=== PATIENT | female | born 1990 | race Caucasian/White ===

== ENCOUNTER 2019-11-19 11:34 | Inpatient (IN) | payer BC, SELFPAY ==
[2019-11-19 11:35] VITALS: BP 90/60; PULSE 66; RESP 17; TEMP 36.7; O2SAT 99; BMI 20.7
--- NOTE | 2019-11-19 11:51 | ED.VIS.GEN ---
History of Present Illness Chief Complaint: Substance Abuse Informant: Patient Narrative: Patient presents requesting help with detox from fentanyl. She states she is been clean for 2 years. She recently started using weed followed by morphine and Percocet pills. This transitioned to fentanyl use approximately month ago. She states she will use multiple times a day and is recently started shooting it up. Last use was a few hours ago. - Past Medical History (1) Anxiety and depression Status: Chronic Past Medical History - Allergies and Home Meds Allergies/Adverse Reactions: Allergies No Known Allergies Allergy (Verified 11/19/19 11:35) Primary Care Physician: Care Physician,No Primary [Primary Care Provider] - Prior records reviewed: Yes Smoking Status: Current every day smoker Drugs: - - Fentanyl Review of Systems General: Denies: Chills, Fever Eyes: Denies: Visual changes - bilaterally ENT: Denies: Bilateral ear pain Cardiovascular: Denies: Chest pain Respiratory: Denies: Dyspnea, Cough Gastrointestinal: Denies: Abdominal pain, Nausea, Vomiting, Diarrhea Musculoskeletal: Denies: Extremity Pain Skin: Denies: Rash Neurological: Denies: Headache Hematologic: Denies: Easy bruising, Easy bleeding Allergy: Denies: Uticaria Physical Exam Vital Signs/Narrative: Vital Signs Temp Pulse Resp BP Pulse Ox 11/19/19 11:35 98.1 F 66 17 90/60 99 Inital Vital Signs reviewed: Yes General: Well nourished, Well developed Head: Normocephalic ENT: Moist mucous membranes Neck: Supple Cardiovascular: Regular rate, Regular rhythm Respiratory: No distress, CTA bilaterally Abdomen: Soft, Nontender Extremities: Nontender Skin: Normal color Neurological: Alert, Oriented x3, Normal Strength, Normal Sensation Diagnostic/Tx/Re-eval Laboratory Results 11/19/19 11/19/19 11/19/19 10:25 10:25 10:25 WBC 7.5 RBC 3.64 L Hgb 11.1 L Hct 34.6 L MCV 95.1 MCH 30.5 MCHC 32.1 RDW Std Deviation 41.7 RDW Coeff of Chris 12.0 Plt Count 231 MPV 10.2 Immature Gran % (Auto) 0.100 Neut % (Auto) 64.5 Lymph % (Auto) 24.2 [place] % (Auto) 8.3 Eos % (Auto) 2.4 Baso % (Auto) 0.5 Absolute Neuts (auto) 4.8 Absolute Lymphs (auto) 1.81 Nucleated RBC % 0 Sodium 138 Potassium 3.5 Chloride 103 Carbon Dioxide 30.0 Anion Gap 5 BUN 7 Creatinine 0.82 Estim Creat Clear Calc 76.39 Est GFR (MDRD) Af Amer 106 Est GFR (MDRD) Non-Af 88 BUN/Creatinine Ratio 8.5 L Glucose 114 H Calcium 8.6 Total Bilirubin 0.20 AST 17 ALT 16 Alkaline Phosphatase 73 Total Protein 7.4 Albumin 3.2 Globulin 4.2 Albumin/Globulin Ratio 0.8 L Serum , Qual NEGATIVE Urine Opiates Screen Urine Methadone Screen Ur Barbiturates Screen Ur Phencyclidine Scrn Ur Amphetamines Screen U Methamphetamin-MDMA U Benzodiazepines Scrn Urine Cocaine Screen U Cannabinoids Screen Ur Drug Screen Comment 11/19/19 12:10 WBC RBC Hgb Hct MCV MCH MCHC RDW Std Deviation RDW Coeff of Chris Plt Count MPV Immature Gran % (Auto) Neut % (Auto) Lymph % (Auto) [place] % (Auto) Eos % (Auto) Baso % (Auto) Absolute Neuts (auto) Absolute Lymphs (auto) Nucleated RBC % Sodium Potassium Chloride Carbon Dioxide Anion Gap BUN Creatinine Estim Creat Clear Calc Est GFR (MDRD) Af Amer Est GFR (MDRD) Non-Af BUN/Creatinine Ratio Glucose Calcium Total Bilirubin AST ALT Alkaline Phosphatase Total Protein Albumin Globulin Albumin/Globulin Ratio Serum , Qual Urine Opiates Screen POSITIVE H Urine Methadone Screen NEGATIVE Ur Barbiturates Screen NEGATIVE Ur Phencyclidine Scrn NEGATIVE Ur Amphetamines Screen NEGATIVE U Methamphetamin-MDMA POSITIVE H U Benzodiazepines Scrn NEGATIVE Urine Cocaine Screen NEGATIVE U Cannabinoids Screen NEGATIVE Ur Drug Screen Comment - Medical Decision Making Laboratory for detox admission was obtained. Patient discussed with hospitalist. Patient be admitted to the floor for detox program. ED Disposition - Plan for ED Patient: Disposition: Acute Care Hospital [facility] Diagnosis: Desire for detoxification Referrals: Care Physician,No Primary [Primary Care Provider] -
[2019-11-19 12:20] LABS: Absolute Lymphocyte Count 1.81 X10^3/uL (0.83-4.51); Absolute Neutrophil Count 4.8 X10^3/uL (2.0-7.7); Basophil# 0.04 X10^3/uL; Basophil% 0.5 % (0-1); Eosinophil# 0.18 X10^3/uL; Eosinophils% 2.4 % (0-5); Hematocrit 34.6 % (37-47); Hemoglobin 11.1 g/dL (12.0-15.0); Lymphocyte # 1.81 X10^3/ul (4.0); Lymphocyte % 24.2 % (19-41); Mean Corp Hgb Conc 32.1 g/dL (32-36); Mean Corpuscular Hgb 30.5 pg (27.0-32.0); Mean Corpuscular Volume 95.1 fL (81-99); Mean Platelet Vol. 10.2 fl (6.2-12.0); Monocyte# 0.62 X10^3/uL; Monocyte% 8.3 % (0-10); NRBC Flagged by Analyzer 0 % (0-5); Neutrophil # 4.81 X10^3/uL (2.7-7.7); Neutrophil % 64.5 % (47-70); Platelet Count 231 K/mm3 (150-450); RBC Distribution Width SD 41.7 fl (35.1-43.9); Red Blood Count 3.64 M/mm3 (4.2-5.4); White Blood Count 7.5 K/mm3 (4.4-11.0)
[2019-11-19 12:27] LABS: Internal QC Validated? YES +Cl - CLEAR BKGD; Pregnancy, Serum, hCG Quali. NEGATIVE Negative
[2019-11-19 12:35] LABS: ALB/GLOB Ratio 0.8 RATIO (0.9-2.4); AST(SGOT) 17 U/L (15-37); Alanine Aminotransfer ALT/SGPT 16 U/L (13-56); Albumin, Serum 3.2 g/dL (3.2-5.0); Alkaline Phosphatase 73 U/L (45-117); Anion Gap 5 (5-15); BUN 7 mg/dL (7-18); BUN/Creat Ratio 8.5 RATIO (10-20); Calcium,Total 8.6 mg/dL (8.5-10.1); Chloride 103 mmol/L (98-107); Creatinine, Serum 0.82 mg/dL (0.55-1.02); EST Glomerular Filtration Rate 88 mL/min (>60); Est Glom Filt Rate - Afr Amer 106 mL/min (>60); Estimated Creatinine Clearance 76.39 ml/min; Globulin 4.2 g/dL (2.2-4.2); Glucose 114 mg/dL (74-106); Potassium 3.5 mmol/L (3.5-5.1); Protein, Total 7.4 g/dL (6.4-8.2); Sodium Level 138 mmol/L (136-145)
[2019-11-19 12:50] LABS: Amphetamine Urine VISTA NEGATIVE (<1000 ng/mL); Barbiturate Urine VISTA NEGATIVE (< 200 ng/mL); Benzodiazepine Urine VISTA NEGATIVE (< 200 ng/mL); Cocaine Urine VISTA NEGATIVE (< 300 ng/mL); Ecstacy Urine VISTA POSITIVE (< 500 ng/mL); Methadone Urine VISTA NEGATIVE (< 300 ng/mL); PCP Urine VISTA NEGATIVE (< 25 ng/mL); THC Urine VISTA NEGATIVE (< 50 ng/mL); Vista UDS pH Range 6
[2019-11-19 12:58] LABS: Alcohol, Blood (Medical)-Serum < 3.0 mg/dL
--- NOTE | 2019-11-19 13:00 | PCM.HP.STD ---
Problem List (1) Polysubstance (including opioids) dependence, daily use Status: Chronic (2) Acute opioid withdrawal Status: Acute (3) Nicotine dependence Status: Acute (4) Anxiety and depression Status: Chronic History of Present Illness Date of Admission: 11/19/19 Chief Complaint: Came to ER for opioid detoxification and opioid withdrawal symptoms The patient is a 29 year old F with history of opioid use and dependence and relapse came to ER for detoxification. Patient last dose was IV fentanyl in the morning today. In ED, she started feeling anxiety, nervous and restless and felt her withdrawal symptoms are coming. She was clean for about 2 years and then relapsed with weed, then it progressed to morphine and Percocet inhalation and then IV fentanyl about a month ago. She spent about $40-$50 every day and uses IV fentanyl multiple times a day. She also smokes 1 pack cigarette in 3 days along with smoking weeds. Denies other substance use including benzodiazepine, methamphetamine, minocycline and crack cocaine but U tox is positive for opioids and methamphetamine. Vitals on baseline in ER. test negative. Past Medical History Past Medical History (Chronic Problems): Chronic Problems Anxiety and depression (Chronic) Polysubstance (including opioids) dependence, daily use (Chronic) Allergies No Known Allergies Allergy (Verified 11/19/19 11:35) Home Medications: Ambulatory Orders Medication Instructions Recorded Citalopram [Celexa] 20 mg PO DAILY 11/19/19 Smoking Status: Current every day smoker Drugs: - - Fentanyl - *Family History Paternal History Items: - - Father had chronic alcohol use and dependence disorder. Review of Systems Constitutional: Reports: Malaise, Weakness. Denies: Chills, Fever, Weight Change HEENT: Denies: Head Aches, Sinus Congestion, Sinus Drainage Cardiovascular: Denies: Chest Pain, Palpitations Respiratory: Denies: Cough, Shortness of breath at rest, Sputum production Gastrointestinal: Denies: Abdominal Pain, Nausea, Vomiting Genitourinary: Denies: Dysuria, Frequency, Incontinence, Retention, Urgency Musculoskeletal: Reports: Leg Pain. Denies: Joint Pain, Joint Tenderness Skin: Denies: Rash, Wounds Neurological: Denies: Numbness, Tingling, Focal weakness Psychiatric: Reports: Anxiety. Denies: Depression, Homicidal Ideations, Suicidal Ideations Hematologic/ Lymphatic: Denies: Easy Bruising, Easy Bleeding VTE Information - Inpt Only VTE Present on Admission: No VTE Mechan Device Prophylaxis: None VTE Pharm Prophylaxis ordered?: No Reason prophylaxis not ordered:: Procedure Not Indicated Patient Problems: Active and Suspected Problems Acute opioid withdrawal (Acute) Nicotine dependence (Acute) - Physical Exam Vitals/I&O's: Vital Signs Temp Pulse Resp BP Pulse Ox 98.1 F 66 17 90/60 99 11/19/19 11:35 11/19/19 11:35 11/19/19 11:35 11/19/19 11:35 11/19/19 11:35 Oxygen Delivery Method Room Air Weight: 110 lb Body Mass Index (BMI) 20.7 General: Alert, Oriented x3, Cooperative HEENT: Atraumatic, PERRLA, EOMI, Normocephalic Oral: No Gingival or Mucosal Lesions/ Ulcerations, Dry Mucosa Neck: Supple, No JVD, Negative Carotid Bruits Lungs: Clear to auscultation, Normal air movement, No rhonchi, No wheeze, No rales Cardiovascular: Regular rate, Regular Rhythm, Normal S1, Normal S2, No murmurs Abdomen: Bowel Sounds Present, Soft, Non Tender, Non-Distended Extremities: No edema, Capillary Refill Less than 3 Seconds Skin: No rashes, No breakdown, - - Needle barksdale over antecubital region. Musculoskeletal: No Tenderness to Palpation of Joints or Extremities, Tenderness - Mild tenderness over right lower leg. Squeezing test of right ankle, foot and lower leg are negative. Says muscle tenderness. Does not remember exactly what she might have bumped her leg few days ago. Neurological: Cranial nerves II-XII grossly intact, Deep Tendon Reflexes 2+/4 and Symmetrical, Neuro grossly intact, Motor Exam 5/5 strength throughout Psych/Mental Status: Anxious, Restless Laboratory Results 11/19/19 10:25: WBC 7.5, RBC 3.64 L, Hgb 11.1 L, Hct 34.6 L, MCV 95.1, MCH 30.5, MCHC 32.1, RDW Std Deviation 41.7, RDW Coeff of Chris 12.0, Plt Count 231, MPV 10.2, Immature Gran % (Auto) 0.100, Neut % (Auto) 64.5, Lymph % (Auto) 24.2, [place] % (Auto) 8.3, Eos % (Auto) 2.4, Baso % (Auto) 0.5, Absolute Neuts (auto) 4.8, Absolute Lymphs (auto) 1.81, Nucleated RBC % 0 11/19/19 10:25: Sodium 138, Potassium 3.5, Chloride 103, Carbon Dioxide 30.0, Anion Gap 5, BUN 7, Creatinine 0.82, Estim Creat Clear Calc 76.39, Est GFR (MDRD) Af Amer 106, Est GFR (MDRD) Non-Af 88, BUN/Creatinine Ratio 8.5 L, Glucose 114 H, Calcium 8.6, Total Bilirubin 0.20, AST 17, ALT 16, Alkaline Phosphatase 73, Total Protein 7.4, Albumin 3.2, Globulin 4.2, Albumin/Globulin Ratio 0.8 L 11/19/19 10:25: Ethyl Alcohol < 3.0 11/19/19 10:25: Serum , Qual NEGATIVE 11/19/19 12:10: Urine Opiates Screen POSITIVE H, Urine Methadone Screen NEGATIVE, Ur Barbiturates Screen NEGATIVE, Ur Phencyclidine Scrn NEGATIVE, Ur Amphetamines Screen NEGATIVE, U Methamphetamin-MDMA POSITIVE H, U Benzodiazepines Scrn NEGATIVE, Urine Cocaine Screen NEGATIVE, U Cannabinoids Screen NEGATIVE, Ur Drug Screen Comment Assessment/Plan All Active Problems Acute opioid withdrawal (Acute) Nicotine dependence (Acute) There is a 29-year-old female with history of polysubstance use and dependence came to ED for detoxification for opioids. She uses IV fentanyl multiple times a day. 1. Acute opioid withdrawal: Patient is being admitted on [facility] floor. IV fluid Ringer lactate and buprenorphine sublingual schedule and taper. Other supportive medications clonidine, dicyclomine, gabapentin, hydroxyzine, ibuprofen, methocarbamol and loperamide. manager programming consult for 180 and evaluation. U tox is positive of opioids and methamphetamine. Serum test negative. 2. Polysubstance use including opioids: Although patient states she only uses opioids/fentanyl but urine tox positive of methamphetamine too. Substance quit counseling was done. 3. Cigarette smoking/nicotine dependence: Nicotine patch daily. 4. DVT prophylaxis: Low risk early ambulation encouraged. Inpatient E&M: [id number] Init Hosp L3
[2019-11-19] MEDS: LORazepam 1 MG Tablet PO (13:02)
[2019-11-19 13:03] VITALS: BP 120/78; PULSE 79; RESP 16; TEMP 36.8; O2SAT 98
--- NOTE | 2019-11-19 13:30 | CM.ED ---
SOCIAL WORK PATIENT ADMITTED TO THE RAMP PROGRAM FOR MEDICAL WITHDRAW MANAGEMENT FROM [facility]. CALL TO [employer] TREATMENT NAVIGATOR, SHIMA AND UPDATED ON ADMISSION THIS DAY. SHIMA REPORTS SOMEONE WILL BE IN TO ASSESS PATIENT TOMORROW. Emmanuelle GAGE MSW, AWNINGS MECHANIC.
[2019-11-19 13:41] VITALS: BMI 21.3
[2019-11-19 13:52] VITALS: BMI 21.4
[2019-11-19 14:00] VITALS: BP 105/60; PULSE 80; RESP 18; TEMP 36.8; O2SAT 100
[2019-11-19 14:11] LABS: Prothrombin Time (Protime)PT. 12.7 SECONDS (11.7-14.9)
[2019-11-19 14:20] LABS: Bacteria 0 SEEN /hpf (None Seen); Mucous, Urine 0 SEEN /hpf (<or=2+)
[2019-11-19 14:39] LABS: Color, Urine Yellow (Yellow); Glucose, Dipstick Normal (Normal); Ketone-Dipstick 5 mg/dl (Negative); Leukocyte Esterase-Dipstick 25 /ul (Negative); Nitrite-Dipstick Negative (Negative); Occult Blood-Urine 250 /ul (Negative); Protein-Dipstick 15 mg/dl (Negative); Specific Gravity, Urine 1.025 (1.002-1.030); Urine Bilirubin Dipstick Negative (Negative); Urine Clarity Clear (Clear); Urine Urobilinogen 1 mg/dl (Normal)
--- NOTE | 2019-11-19 14:39 | CASEMGMT ---
Social Work Note Tom from [facility] updated this worker that she attempted to see pt today but pt not able to participate in assessment at this time. Tom states she will be back in tomorrow to speak to pt. Loretta Jaramillo SUBSTATION SUPERVISOR, MEDICAL ASSISTING PROGRAM DIRECTOR
[2019-11-19 14:44] LABS: Squamous Epithelial Cells - UA 0-5 SEEN /hpf (5-10); White Blood Cells 0-5 SEEN /hpf (0-5)
[2019-11-19 14:45] LABS: Red Blood Cells-Urine 0-5 SEEN /hpf (0-5)
[2019-11-19] MEDS: Lactated Ringers 1,000 ML 125 ML IV (14:59)
[2019-11-19] MEDS: Methocarbamol 750 MG Tablet 1500 MG PO ×2 (17:07→23:02)
[2019-11-19] MEDS: Buprenorphine HCl 2 MG TAB.SUBL SL (17:07)
[2019-11-19 20:29] VITALS: BP 111/69; PULSE 73; RESP 16; TEMP 36.6; O2SAT 98
[2019-11-20 00:33] VITALS: BP 123/77; PULSE 89; RESP 16; TEMP 36.6; O2SAT 99
[2019-11-20] MEDS: Buprenorphine HCl 2 MG TAB.SUBL SL ×4 (00:39→22:17)
[2019-11-20] MEDS: cloNIDine HCl 0.1 MG Tablet PO (00:39)
[2019-11-20 04:00] VITALS: BP 102/64; PULSE 70; RESP 16; TEMP 36.5; O2SAT 96
[2019-11-20 06:45] VITALS: BP 93/56; PULSE 73; RESP 16; TEMP 36.6; O2SAT 100
--- NOTE | 2019-11-20 08:29 | CASEMGMT ---
Social Work Note Pt is RAMP pt. SW placed a call to Tom at [facility] and left message that pt will need to be seen. Loretta Jaramillo DATA CONVERSION ANALYST, MANAGER CIVIL
[2019-11-20 10:45] VITALS: BP 94/64; PULSE 69; RESP 16; RESP 18; TEMP 36.7; O2SAT 100
--- NOTE | 2019-11-20 12:43 | PCM.PN.HOSP ---
Patient Problems: Active and Suspected Problems Acute opioid withdrawal (Acute) Nicotine dependence (Acute) Desire for detoxification (Acute) Reason for Visit: Acute opioid withdrawal Objective: Patient is lethargic, sleepy. Has poor appetite. Still sometimes restlessness, anxiety attacks and aches and pains. No diarrhea. Vitals/I&O's: Vital Signs Temp Pulse Resp BP Pulse Ox 98.1 F 69 18 94/64 100 11/20/19 10:45 11/20/19 10:45 11/20/19 10:45 11/20/19 10:45 11/20/19 10:45 Oxygen Delivery Method Room Air Weight: 113 lb Body Mass Index (BMI) 21.3 Intake and Output for Last 24 Hours 11/18/19 11/19/19 11/20/19 23:59 23:59 23:59 Intake Total 1327.08 / 1327.08 1622 / 1622 Balance 1327.08 / 1327.08 1622 / 1622 General: Alert, Oriented x3, Cooperative HEENT: Atraumatic, PERRLA, EOMI, Normocephalic Neck: Supple, No JVD, Negative Carotid Bruits Lungs: Clear to auscultation, Normal air movement, No rhonchi, No wheeze, No rales Cardiovascular: Regular rate, No murmurs Abdomen: Bowel Sounds Present, Soft, Non Tender, Non-Distended Extremities: No edema, Capillary Refill Less than 3 Seconds Skin: No rashes, No breakdown, - - needle barksdale over antecubital region. Musculoskeletal: No Tenderness to Palpation of Joints or Extremities Neurological: Cranial nerves II-XII grossly intact, Deep Tendon Reflexes 2+/4 and Symmetrical, Neuro grossly intact, Motor Exam 5/5 strength throughout Psych/Mental Status: Normal Affect, Appropriate Laboratory Results 11/19/19 10:25: Ethyl Alcohol < 3.0 11/19/19 12:05: PT 12.7, INR 1.0 11/19/19 12:10: Urine Opiates Screen POSITIVE H, Urine Methadone Screen NEGATIVE, Ur Barbiturates Screen NEGATIVE, Ur Phencyclidine Scrn NEGATIVE, Ur Amphetamines Screen NEGATIVE, U Methamphetamin-MDMA POSITIVE H, U Benzodiazepines Scrn NEGATIVE, Urine Cocaine Screen NEGATIVE, U Cannabinoids Screen NEGATIVE 11/19/19 12:10: Urine Color Yellow, Urine Clarity Clear, Urine pH 5.0, Ur Specific [place] 1.025, Urine Protein 15 H, Urine Glucose (UA) Normal, Urine Ketones 5 H, Urine Occult Blood 250 H, Urine Nitrite Negative, Urine Bilirubin Negative, Urine Urobilinogen 1 H, Ur Leukocyte Esterase 25 H, Urine RBC 0-5 SEEN, Urine WBC 0-5 SEEN, Ur Squamous Epith Cells 0-5 SEEN, Urine Bacteria 0 SEEN, Urine Mucus 0 SEEN Current Medications Acetaminophen (Tylenol) 500 mg PO Q4H PRN PRN PRN Reason: Temp > 100.4 F Al Hydroxide/Mg Hydroxide (Mylanta Ii) 30 ml PO Q6H PRN PRN PRN Reason: dyspesia Bisacodyl (Dulcolax) 10 mg RECTAL DAILY PRN PRN Reason: Constipation Buprenorphine HCl (Buprenorphine Hcl) 4 mg SL Q8H JUSTIN; Taper Stop: 11/22/19 15:14 Last Admin: 11/20/19 06:49 Dose: 4 mg Documented by: Clonidine (Catapres) 0.1 mg PO Q8H PRN PRN PRN Reason: RESTLESSNESS Last Admin: 11/20/19 00:39 Dose: 0.1 mg Documented by: Dicyclomine HCl (Bentyl) 20 mg PO Q6H PRN PRN PRN Reason: Abdominal Discomfort Gabapentin (Neurontin) 300 mg PO Q8H PRN PRN PRN Reason: moderate to severe anxiety Hydroxyzine Pamoate (Vistaril Pamoate Capsule) 50 mg PO Q6H PRN PRN PRN Reason: mild anxiety Ibuprofen (Motrin) 600 mg PO Q8H PRN PRN PRN Reason: Pain Score 1-10/10 Loperamide HCl (Imodium) 2 mg PO Q4H PRN PRN PRN Reason: LOOSE STOOLS Methocarbamol (Methocarbamol) 1,500 mg PO Q6H PRN PRN PRN Reason: MUSCLE SPASM Last Admin: 11/19/19 23:02 Dose: 1,500 mg Documented by: Nicotine (Nicoderm Cq (Pbkc)) 21 mg TRANSDERM. DAILY JUSTIN Last Admin: 11/20/19 10:55 Dose: 21 mg Documented by: Ondansetron HCl (Zofran) 8 mg PO Q8H PRN PRN PRN Reason: NAUSEA Senna (Senokot) 2 tablet PO QHS PRN PRN Reason: Constipation Sodium Chloride () 10 - 40 ml IV UD PRN PRN Reason: SALINE FLUSH Trazodone HCl (Desyrel) 100 mg PO QHS PRN PRN PRN Reason: INSOMNIA STROKE Vital Signs/Narrative: Vital Signs Temp Pulse Resp BP Pulse Ox 11/20/19 10:45 98.1 F 69 16 94/64 100 Medical Necessity - Tobacco Use Smoking Status: Current every day smoker Tobacco Use: Cigarettes, Vapor Assessment/Plan All Active Problems Acute opioid withdrawal (Acute) Nicotine dependence (Acute) Desire for detoxification (Acute) There is a 29-year-old female with history of polysubstance use and dependence came to ED for detoxification for opioids. She uses IV fentanyl multiple times a day. 1. Acute opioid withdrawal: Patient is being admitted on MedSur floor. IV fluid Ringer lactate and buprenorphine sublingual schedule and taper. Other supportive medications clonidine, dicyclomine, gabapentin, hydroxyzine, ibuprofen, methocarbamol and loperamide. manager development consult for 180 and evaluation. U tox is positive of opioids and methamphetamine. Serum test negative. 11/19: Mild withdrawal symptoms otherwise doing good. Patient is sleepy. Monitor CINA score. Heart rate and blood pressure is stable. INR 1.0. 2. Polysubstance use including opioids: Although patient states she only uses opioids/fentanyl but urine tox positive of methamphetamine too. Substance quit counseling was done. 3. Cigarette smoking/nicotine dependence: Nicotine patch daily. 4. DVT prophylaxis: Low risk early ambulation encouraged. Inpatient E&M: [id number] [facility] Hosp L2
[2019-11-20] MEDS: Methocarbamol 750 MG Tablet 1500 MG PO ×2 (13:24→22:17)
--- NOTE | 2019-11-20 15:06 | CHAPLAIN ---
Type of Pastoral Visit _x__ Initial Visit ___ Follow-up Visit ___ On-call Visit ___ General Patient Visit ___ Spiritual Assessment ___ Family Conference ___ Bereavement ___ Rapid Response ___ Code Blue ___ Other (describe below) Pastoral Care Referral From _x__ Patient ___ Family ___ Nurse ___ Physician ___ Engine Setter ___ Cad Draftsman ___ Other (describe below) Sacrament/Intervention _x__ Active listening ___ Anointing ___ Orthodox ___ Bereavement ___ Communion ___ Kristie exploration ___ ___ Life review ___ Prayer ___ Reconciliation ___ Sacrament of Sick _x__ Supportive presence ___ Wedding ___ Other (describe below) Pastoral Comments patient is awake and sitting up in bed; pt has lunch tray and states I didn't even know I had this so I am going to try and eat; pt is pleasant in manner; offer of support given; pt would welcome a future visit
[2019-11-20] MEDS: hydrOXYzine PAM 25 MG Capsule 50 MG PO ×2 (15:25→22:16)
[2019-11-20 15:59] VITALS: BP 104/64; PULSE 82; RESP 18; TEMP 36.8; O2SAT 100
[2019-11-20] MEDS: Dicyclomine 10 MG Capsule 20 MG PO (22:16)
[2019-11-20] MEDS: traZODone 100 MG Tablet PO (22:17)
[2019-11-20 22:26] VITALS: BP 102/55; PULSE 77; RESP 16; TEMP 37.2; O2SAT 99
[2019-11-21 02:41] VITALS: BP 101/65; PULSE 80; RESP 16; TEMP 36.7; O2SAT 99
[2019-11-21] MEDS: Buprenorphine HCl 2 MG TAB.SUBL SL ×2 (06:48→15:50)
[2019-11-21] MEDS: Dicyclomine 10 MG Capsule 20 MG PO ×2 (06:48→17:35)
[2019-11-21] MEDS: hydrOXYzine PAM 25 MG Capsule 50 MG PO (06:48)
[2019-11-21 08:41] VITALS: BP 90/52; PULSE 60; RESP 15; TEMP 36.6; O2SAT 99
[2019-11-21 10:45] VITALS: BP 100/51; PULSE 75; RESP 15; TEMP 36.6; O2SAT 99
--- NOTE | 2019-11-21 12:29 | PCM.PN.HOSP ---
Patient Problems: Active and Suspected Problems Acute opioid withdrawal (Acute) Nicotine dependence (Acute) Desire for detoxification (Acute) Reason for Visit: Patient symptoms are controlled but she still sleepy, lethargic. She answers questions appropriately. Vitals/I&O's: Vital Signs Temp Pulse Resp BP Pulse Ox 97.9 F 75 15 100/51 L 99 11/21/19 10:45 11/21/19 10:45 11/21/19 10:45 11/21/19 10:45 11/21/19 10:45 Oxygen Delivery Method Room Air Weight: 113 lb Body Mass Index (BMI) 21.3 Intake and Output for Last 24 Hours 11/19/19 11/20/19 11/21/19 23:59 23:59 23:59 Intake Total 1327.08 / 1327.08 2422 / 2422 550 / 550 Balance 1327.08 / 1327.08 2422 / 2422 550 / 550 General: Alert, Oriented x3, Cooperative HEENT: Atraumatic, PERRLA, EOMI, Normocephalic Neck: Supple, No JVD, Negative Carotid Bruits Lungs: Clear to auscultation, Normal air movement Cardiovascular: Regular rate, Regular Rhythm, Normal S1, Normal S2, No murmurs Abdomen: Bowel Sounds Present, Soft, Non Tender, Non-Distended Extremities: No edema, Capillary Refill Less than 3 Seconds Skin: No rashes, No breakdown, - - Needle track barksdale over antecubital region. Musculoskeletal: No Tenderness to Palpation of Joints or Extremities Neurological: Cranial nerves II-XII grossly intact, Deep Tendon Reflexes 2+/4 and Symmetrical, Neuro grossly intact Psych/Mental Status: Normal Affect, Appropriate Current Medications Acetaminophen (Tylenol) 500 mg PO Q4H PRN PRN PRN Reason: Temp > 100.4 F Al Hydroxide/Mg Hydroxide (Mylanta Ii) 30 ml PO Q6H PRN PRN PRN Reason: dyspesia Bisacodyl (Dulcolax) 10 mg RECTAL DAILY PRN PRN Reason: Constipation Buprenorphine HCl (Buprenorphine Hcl) 2 mg SL Q8H [facility]; Taper Stop: 11/22/19 15:14 Last Admin: 11/21/19 06:48 Dose: 2 mg Documented by: Clonidine (Catapres) 0.1 mg PO Q8H PRN PRN PRN Reason: RESTLESSNESS Last Admin: 11/20/19 00:39 Dose: 0.1 mg Documented by: Dicyclomine HCl (Bentyl) 20 mg PO Q6H PRN PRN PRN Reason: Abdominal Discomfort Last Admin: 11/21/19 06:48 Dose: 20 mg Documented by: Gabapentin (Neurontin) 300 mg PO Q8H PRN PRN PRN Reason: moderate to severe anxiety Hydroxyzine Pamoate (Vistaril Pamoate Capsule) 50 mg PO Q6H PRN PRN PRN Reason: mild anxiety Last Admin: 11/21/19 06:48 Dose: 50 mg Documented by: Ibuprofen (Motrin) 600 mg PO Q8H PRN PRN PRN Reason: Pain Score 1-10/10 Loperamide HCl (Imodium) 2 mg PO Q4H PRN PRN PRN Reason: LOOSE STOOLS Methocarbamol (Methocarbamol) 1,500 mg PO Q6H PRN PRN PRN Reason: MUSCLE SPASM Last Admin: 11/20/19 22:17 Dose: 1,500 mg Documented by: Nicotine (Nicoderm Cq (Pbkc)) 21 mg TRANSDERM. DAILY JUSTIN Last Admin: 11/21/19 09:13 Dose: 21 mg Documented by: Ondansetron HCl (Zofran) 8 mg PO Q8H PRN PRN PRN Reason: NAUSEA Senna (Senokot) 2 tablet PO QHS PRN PRN Reason: Constipation Sodium Chloride () 10 - 40 ml IV UD PRN PRN Reason: SALINE FLUSH Trazodone HCl (Desyrel) 100 mg PO QHS PRN PRN PRN Reason: INSOMNIA Last Admin: 11/20/19 22:17 Dose: 100 mg Documented by: STROKE Vital Signs/Narrative: Vital Signs Temp Pulse Resp BP Pulse Ox 11/21/19 10:45 97.9 F 75 15 100/51 L 99 11/21/19 08:41 97.9 F 60 15 90/52 L 99 Medical Necessity - Tobacco Use Smoking Status: Current every day smoker Tobacco Use: Cigarettes, Vapor Assessment/Plan All Active Problems Acute opioid withdrawal (Acute) Nicotine dependence (Acute) Desire for detoxification (Acute) There is a 29-year-old female with history of polysubstance use and dependence came to ED for detoxification for opioids. She uses IV fentanyl multiple times a day. 1. Acute opioid withdrawal: [facility] IV fluid Ringer lactate and buprenorphine sublingual schedule and taper. Other supportive medications clonidine, dicyclomine, gabapentin, hydroxyzine, ibuprofen, methocarbamol and loperamide. welfare project manager consult for 180 and evaluation. U tox is positive of opioids and methamphetamine. Serum test negative. 11/19: Mild withdrawal symptoms otherwise doing good. Patient is sleepy. Monitor CINA score. Heart rate and blood pressure is stable. INR 1.0. 11/20: Mild withdrawal symptoms. Discharge tomorrow. 2. Polysubstance use including opioids: Although patient states she only uses opioids/fentanyl but urine tox positive of methamphetamine too. Substance quit counseling was done. 3. Cigarette smoking/nicotine dependence: Nicotine patch daily. 4. DVT prophylaxis: Low risk early ambulation encouraged. Inpatient E&M: [id number] [facility] Hosp L2
--- NOTE | 2019-11-21 13:01 | CHAPLAIN ---
Type of Pastoral Visit ___ Initial Visit _x__ Follow-up Visit ___ On-call Visit ___ General Patient Visit ___ Spiritual Assessment ___ Family Conference ___ Bereavement ___ Rapid Response ___ Code Blue ___ Other (describe below) Pastoral Care Referral From _x__ Patient ___ Family ___ Nurse ___ Physician ___ Installer Molding And Trim ___ Chef Passenger Vessel ___ Other (describe below) Sacrament/Intervention ___ Active listening ___ Anointing ___ Congregation ___ Bereavement ___ Communion ___ Kristie exploration ___ ___ Life review ___ Prayer ___ Reconciliation ___ Sacrament of Sick _x__ Supportive presence ___ Wedding ___ Other (describe below) Pastoral Comments patient was napping but opens eyes when this yarn salvager enters room; offer of support given; pt states she is just trying to sleep the time away and I'm doing ok; no other concerns at this time
[2019-11-21 15:52] VITALS: BP 106/61; PULSE 74; RESP 16; TEMP 37; O2SAT 100
--- NOTE | 2019-11-21 16:00 | NURSING ---
pt wanting to leave and her girlfriend call the front window cashier and wanted an update - told pt and gave encouragement verbally from girlfriend after this rn talked with girlfriend on the phone
[2019-11-21] MEDS: Methocarbamol 750 MG Tablet 1500 MG PO (17:35)
[2019-11-21 17:43] VITALS: BP 106/62; PULSE 75; RESP 16; TEMP 37.1; O2SAT 99
[2019-11-21] MEDS: Ibuprofen 600 MG Tablet PO (19:50)
[2019-11-21 19:55] VITALS: BP 104/68; PULSE 65; RESP 18; TEMP 37.2; O2SAT 98
[2019-11-22] MEDS: Buprenorphine HCl 2 MG TAB.SUBL SL (03:24)
[2019-11-22 03:30] VITALS: BP 94/43; PULSE 66; RESP 18; TEMP 36.4; O2SAT 99
[2019-11-22 08:02] VITALS: BP 107/58; PULSE 72; RESP 16; TEMP 36.4; O2SAT 100
--- NOTE | 2019-11-22 10:03 | PCM.DC.SUM ---
Discharge Date and Diagnosis Date of Admission: 11/19/19 Date of Discharge: 11/22/19 - Secondary Discharge Diagnosis Chronic Problems: Chronic Problems Anxiety and depression (Chronic) Polysubstance (including opioids) dependence, daily use (Chronic) Hospital Course and Treatment Imaging Results: None Operations: None Procedures: None Summary of Care Provided: Per HPI: The patient is a 29 year old F with history of opioid use and dependence and relapse came to ER for detoxification. Patient last dose was IV fentanyl in the morning today. In ED, she started feeling anxiety, nervous and restless and felt her withdrawal symptoms are coming. She was clean for about 2 years and then relapsed with weed, then it progressed to morphine and Percocet inhalation and then IV fentanyl about a month ago. She spent about $40-$50 every day and uses IV fentanyl multiple times a day. She also smokes 1 pack cigarette in 3 days along with smoking weeds. Denies other substance use including benzodiazepine, methamphetamine, minocycline and crack cocaine but U tox is positive for opioids and methamphetamine. Vitals on baseline in ER. test negative. Hospital Course: 1. Acute opiate [id number]-old female who uses IV fentanyl, and she used on the morning of admission. She is gone through rehab and relapsed several times. She was clean for about 2 years in the past. She had wanted to leave yesterday, however was convinced to stay. I discussed with her the plan for possible discharge today versus staying until the which is when she has her appointment for 180. She did complete the opioid withdrawal protocol, however her symptoms were severe enough to necessitate medications. She felt that she would do fine on her own since she was going to be doing an outpatient rehab stay. I discussed with her the approach to both behavioral and mental health and recovery from addiction. She did express understanding of the risks and benefits of discharging today versus on the day of transfer to 180. 2. She was started on nicotine patch for her nicotine dependence secondary to cigarettes. Discussed cessation. - Physical Exam Vitals/I&O's: Vital Signs Temp Pulse Resp BP Pulse Ox 97.6 F L 72 16 107/58 L 100 11/22/19 08:02 11/22/19 08:02 11/22/19 08:02 11/22/19 08:02 11/22/19 08:02 Oxygen Delivery Method Room Air Weight: 113 lb Body Mass Index (BMI) 21.3 Intake and Output for Last 24 Hours 11/20/19 11/21/19 11/22/19 23:59 23:59 23:59 Intake Total 242 / 2422 1300 / 1300 Balance 242 / 242 1300 / 1300 General: Alert, Oriented x3, Cooperative, No apparent distress HEENT: Atraumatic, PERRLA, EOMI, Normocephalic Oral: Moist Mucosa Neck: Supple, No JVD Lungs: Clear to auscultation, Normal air movement, No rhonchi, No wheeze, No rales Cardiovascular: Regular rate, Regular Rhythm, Normal S1, Normal S2, No murmurs Abdomen: Soft, Non Tender, Non-Distended, No Hepato-splenomegaly Extremities: No edema, Capillary Refill Less than 3 Seconds Skin: No rashes, No breakdown Neurological: Neuro grossly intact, Sensory exam intact to light touch and pain Psych/Mental Status: Normal Affect, Appropriate Discharge Diet: No Restrictions Discharge Activity: Return to Normal Activity Call your doctor if you observe: Fever of 101 or Higher, Swelling in the ankles, Chest pain, Prolonged hiccoughing, Increased palpitations (irregular heartbeat) Home Medications: Medications to take at Discharge Citalopram [Celexa] 20 mg PO DAILY 11/19/19 Primary Care Physician: Care Physician,No Primary [Primary Care Provider] - Please Follow Up With: 180 When: 11/25/2019 Disposition: Home Minutes spent on discharge:: 35 Patient Condition:: Stable Medical Necessity - Tobacco Use Smoking Status: Current every day smoker Tobacco Use: Cigarettes, Vapor Meaningful Use Info Meaningful Use Diagnoses (Choose all that apply): None applicable Inpatient E&M: 33038 Disch Hosp
--- NOTE | 2019-11-22 12:01 | NURSING ---
Pt notified this RN that she is ready to be d/c'ed and that she was notified by Dr. Sanford that she would have to wait for a few hours- maybe after 1200 to be able to go home. Pt educated on waiting for discharge and leaving AMA for discharge. Pt verbalized understanding and states that she is not staying any longer and wants to leave now. Patient signed AMA form, denied a copy for her records. AMA form placed in chart. Home med (celexa) returned to patient and all personal belongings prior to d/c.
== END 2019-11-22 09:47 | disposition left against medical advice (07) | DRG 894 ==
LOC: ED 12:52 → MS3 13:14
PROVIDERS: Admitting Provider Internal Medicine; Emergency Provider Emergency Medicine; Visit Provider Family Medicine
DX: F11.23 Opioid dependence with withdrawal (principal); F32.9 Major depressive disorder, single episode, unspecified; F41.9 Anxiety disorder, unspecified; F17.210 Nicotine dependence, cigarettes, uncomplicated
CPT/HCPCS: 80053; 80307; 80320; 81001; 84703; 85025; 85610; 97802; 99283; 99406; J7120; G0480

== ENCOUNTER 2020-01-15 17:41 | Inpatient (IN) | payer BC, MEDICAID, SELFPAY ==
[2020-01-15 17:43] VITALS: BP 117/84; PULSE 89; RESP 18; TEMP 36.6; O2SAT 99; BMI 19.8
--- NOTE | 2020-01-15 18:10 | ED.DCSUM_ITS ---
History of Present Illness Chief Complaint: Substance Abuse Informant: Patient Narrative: Patient is a 29-year-old female with a history of hepatitis C who presents to the emergency department for detox from opioids. She states that she uses fentanyl daily. The last time the patient used was today. She also admits to using methamphetamine yesterday. She was seen here in November for the same issue. She states that she relapsed the same day that she was discharged. She denies going through withdrawal. No history of seizures. She states that she does not want to get high anymore. Denies any symptoms currently including any chest pain, shortness of breath. No recent illness including fever/chills. No abdominal pain or nausea/vomiting. No change in bowel habits. She does smoke cigarettes. Denies any issues with alcohol. Past Medical History - Allergies and Home Meds Allergies/Adverse Reactions: Allergies No Known Allergies Allergy (Verified 01/15/20 17:43) Prior records reviewed: Yes Past Medical History: - - Hepatitis C, substance abuse Smoking Status: Current every day smoker Alcohol: None Drugs: - - Amphetamine, opiates - Family History Paternal Family History: Reports: - - Father had chronic alcohol use and dependence disorder. Review of Systems All systems negative except as indicated General: Denies: Chills, Fever, Sweats Eyes: Denies: Visual changes - bilaterally, Diplopia ENT: Denies: Rhinorrhea, Sore throat Cardiovascular: Denies: Chest pain, Palpitations Respiratory: Denies: Dyspnea, Cough, Dyspnea on exertion Gastrointestinal: Denies: Abdominal pain, Nausea, Vomiting, Diarrhea Genitourinary: Denies: Dysuria, Hematuria, Frequency Musculoskeletal: Denies: Back pain, Extremity Pain Skin: Denies: Rash, Wounds Neurological: Denies: Headache, Weakness, Numbness Physical Exam Vital Signs/Narrative: Vital Signs Temp Pulse Resp BP Pulse Ox 01/15/20 17:43 98 F 89 18 117/84 H 99 Inital Vital Signs reviewed: Yes General: Well nourished, Well developed, No Acute Distress Head: Normocephalic, Atraumatic Eyes: Perrl, EOMI ENT: Moist mucous membranes, No rhinorrhea Neck: Supple, Nontender Cardiovascular: Regular rate, Regular rhythm, No murmurs Respiratory: No distress, CTA bilaterally, Chest nontender Abdomen: Soft, Nontender, Nondistended, Normal bowel sounds Back: Nontender, Normal Inspection Extremities: Nontender, No edema Skin: Normal color, No rash Neurological: Alert, Oriented x3, Cranial nerves II-XII grossly intact, Normal Strength, Normal Sensation Psychological: Normal affect, Normal Mood Diagnostic/Tx/Re-eval - EKG Initial EKG Interpretation: - - Rate of 66 bpm normal sinus rhythm. Normal intervals. Normal axis. Has a T wave inversion in lead V1. Some T wave flattening. No ST elevations or depressions appreciated. No prior EKG for comparison. - Medical Decision Making Patient presents to the ED for requesting to detox from opiates. On arrival to the ED vital signs within normal limits. Physical exam is benign. Does not appear in any acute distress. Addiction medicine labs are being drawn. We will plan on hospitalization. Lab work showed a low potassium which we replaced orally. Liver enzymes are elevated. She did test positive for amphetamines and opiates. He otherwise has been stable throughout ED stay. No complaints of withdrawal at this time. ED Disposition - Plan for ED Patient: Disposition: [facility] Diagnosis: Polysubstance abuse, Hypokalemia, Elevated liver enzymes
[2020-01-15 18:33] LABS: Absolute Lymphocyte Count 3.88 X10^3/uL (0.83-4.51); Absolute Neutrophil Count 2.5 X10^3/uL (2.0-7.7); Basophil# 0.05 X10^3/uL; Basophil% 0.7 % (0-1); Eosinophil# 0.05 X10^3/uL; Eosinophils% 0.7 % (0-5); Hemoglobin 12.3 g/dL (12.0-15.0); Lymphocyte # 3.88 X10^3/ul (4.0); Lymphocyte % 53.7 % (19-41); Mean Corp Hgb Conc 31.5 g/dL (32-36); Mean Corpuscular Hgb 28.3 pg (27.0-32.0); Mean Corpuscular Volume 89.9 fL (81-99); Mean Platelet Vol. 10.3 fl (6.2-12.0); Monocyte# 0.75 X10^3/uL; Monocyte% 10.4 % (0-10); NRBC Flagged by Analyzer 0 % (0-5); Neutrophil # 2.48 X10^3/uL (2.7-7.7); Neutrophil % 34.2 % (47-70); Platelet Count 320 K/mm3 (150-450); RBC Distribution Width CV 14.4 % (11.6-14.6); RBC Distribution Width SD 47.8 fl (35.1-43.9); Red Blood Count 4.34 M/mm3 (4.2-5.4); White Blood Count 7.2 K/mm3 (4.4-11.0)
[2020-01-15 18:45] LABS: Internal QC Validated? YES +Cl - CLEAR BKGD; Pregnancy, Serum, hCG Quali. NEGATIVE Negative
[2020-01-15 18:51] LABS: ALB/GLOB Ratio 0.7 RATIO (0.9-2.4); AST(SGOT) 30 U/L (15-37); Alanine Aminotransfer ALT/SGPT 209 U/L (13-56); Albumin, Serum 3.5 g/dL (3.2-5.0); Alkaline Phosphatase 209 U/L (45-117); Anion Gap 5 (5-15); BUN 4 mg/dL (7-18); BUN/Creat Ratio 4.6 RATIO (10-20); Calcium,Total 8.8 mg/dL (8.5-10.1); Chloride 108 mmol/L (98-107); Creatinine, Serum 0.87 mg/dL (0.55-1.02); EST Glomerular Filtration Rate 82 mL/min (>60); Est Glom Filt Rate - Afr Amer 99 mL/min (>60); Estimated Creatinine Clearance 71.74 ml/min; Globulin 5.3 g/dL (2.2-4.2); Glucose 106 mg/dL (74-106); Potassium 2.8 mmol/L (3.5-5.1); Protein, Total 8.8 g/dL (6.4-8.2); Sodium Level 141 mmol/L (136-145)
[2020-01-15 18:51] LABS: Amphetamine Urine VISTA POSITIVE (<1000 ng/mL); Barbiturate Urine VISTA NEGATIVE (< 200 ng/mL); Benzodiazepine Urine VISTA NEGATIVE (< 200 ng/mL); Cocaine Urine VISTA NEGATIVE (< 300 ng/mL); Ecstacy Urine VISTA POSITIVE (< 500 ng/mL); Methadone Urine VISTA NEGATIVE (< 300 ng/mL); PCP Urine VISTA NEGATIVE (< 25 ng/mL); THC Urine VISTA NEGATIVE (< 50 ng/mL); Vista UDS pH Range 5
--- NOTE | 2020-01-15 19:08 | EKG12_ITS ---
Test Reason : SUB ABUSE Blood Pressure : / mmHG Vent. Rate : 066 BPM Atrial Rate : 066 BPM P-R Int : 128 ms QRS Dur : 082 ms QT Int : 408 ms P-R-T Axes : 054 066 000 degrees QTc Int : 427 ms Normal sinus rhythm Nonspecific T wave abnormality Abnormal ECG Confirmed by SEGUNDO KIM ([id number]), make up editor CADEN CONTRERAS ([id number]) on 01/19/2020 2:10:27 PM Referred By: RAMSES Confirmed By:SEGUNDO KIM
[2020-01-15 19:40] LABS: Magnesium 2.2 mg/dL (1.6-2.6)
[2020-01-15 19:41] VITALS: BP 104/70; PULSE 92; RESP 18; TEMP 36.8; O2SAT 98
--- NOTE | 2020-01-15 19:50 | CM.ED ---
Social Work Consult: Substance Abuse Informant: Self Referral Met with patient in room. Introduced self and geriatric social worker role. Patient agreeable to speaking with this geriatric social worker. Patient states to have recently left the [facility]. Patient states I felt awful and new how to fix it. Patient left [facility] yesterday to then be able to use Speed and Fentanyl. Patient states substance of choice is Fentanyl. Patient tearful throughout conversation. Patient reports Depression and to manage Depression with medication. Patient states to have been clean in the past but I just can't seem to do it this time. Patient states to want help and to want to get clean. Patient states to have support in community and to not be sure about housing due to patient not being sure if patient is able [facility] Patient agreeable to [facility] program contract and seeking medical management of withdrawal symptoms. Support provided. Telephone call to Jenniffer Kirkpatrick. Updated Jenniffer on patient admission. Chante Montes MSW, POWER
--- NOTE | 2020-01-15 20:00 | HP.PCM_ITS ---
Problem List (1) Acute opioid withdrawal Status: Acute (2) Hepatitis C Status: Chronic Qualifiers: Viral hepatitis chronicity: chronic (3) Hepatitis A Status: Chronic Qualifiers: Hepatic coma status: without hepatic coma Qualified Code(s): B15.9 - Hepatitis A without hepatic coma (4) Anxiety and depression Status: Chronic (5) Polysubstance (including opioids) dependence, daily use Status: Chronic (6) Nicotine dependence Status: Chronic Qualifiers: Nicotine product type: unspecified Substance use status: unspecified nicotine-induced disorder Qualified Code(s): F17.209 - Nicotine dependence, unspecified, with unspecified nicotine-induced disorders (7) Polysubstance abuse Status: Acute (8) Hypokalemia Status: Chronic (9) Elevated liver enzymes Status: Chronic History of Present Illness Date of Admission: 01/15/20 Chief Complaint: Acute Opiate Withdrawal The patient is a 29 y/o F w/ PMHx: Known Hepatitis C and A, Anxiety and Depression, Tobacco use, Polysubstance abuse with IVDA with ongoing frequent daily usage of fentanyl as well as methamphetamine who presents to the [facility] ED on 01/15/20, noting to be homeless, previously living at the [facility] with interest in opiate withdrawal treatment with acute opiate withdrawal onset starting this evening following last dose earlier in the day with abdominal pain/cramping, generalized body aches and pains, rhinorrhea, piloerection, fatigue, restless leg, sweating, yawning. Patient interested in attaining clean status although she has been rotating between several treatment programs on a [facility] basis. Work-up in the ED included T 98, heart rate 89, BP 117/84, respiratory rate 18, 99% on room air, CBC with WBC 7.2, hemoglobin 12.3, platelet 320 without market shift, CMP with potassium 2.8, chloride 108, BUN/creatinine 4/0.87, glucose 106, magnesium 2.2, AST/ALT 30/209, alk phos 209, UDS with positive opiate, amphetamine, methamphetamine, ethyl alcohol level 5. In the ED patient ministered potassium 40 mill equivalent p.o. x1. Past Medical History Past Medical History (Chronic Problems): Chronic Problems Anxiety and depression (Chronic) Polysubstance (including opioids) dependence, daily use (Chronic) Nicotine dependence (Chronic) Hypokalemia (Chronic) Elevated liver enzymes (Chronic) Hepatitis C (Chronic) Hepatitis A (Chronic) Allergies No Known Allergies Allergy (Verified 01/15/20 17:43) Home Medications: Ambulatory Orders Medication Instructions Recorded Citalopram [Celexa] 20 mg PO DAILY 11/19/19 Surgical History: - - Patient denies any prior surgical history. 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 Currently homeless. Smoking Status: Current every day smoker - Patient notes ongoing 1 pack/day cigarette tobacco usage. Tobacco Use: Cigarettes Alcohol: None Drugs: - - Patient with ongoing methamphetamine, fentanyl IV drug abuse. Patient notes she uses as much as she is able to get and cannot give me exact amount or exact funds that she uses on a daily basis. Patient is very reticent to note how she is finding her drug usage but denies selling her body. - *Family History Paternal History Items: - - Father had chronic alcohol use and dependence disorder but notes no knowledge of any other medical history as she does not have any inter actions with him. Maternal History Items: Pulmonary Disease - Patient notes a maternal family history of some type of lung disease, unclear type, possibly asthma or COPD with prior tobacco use history noted in her mother. Review of Systems Constitutional: Reports: Anorexia, Chills, Malaise, Weakness, Fatigue. Denies: Fever, Weight Change HEENT: Reports: Nasal Congestion, Post Nasal Drip, Sinus Congestion. Denies: Head Aches, Sinus Drainage Cardiovascular: Denies: Chest Pain, Palpitations Respiratory: Denies: Cough, Shortness of breath at rest, Sputum production Gastrointestinal: Reports: Abdominal Pain, Diarrhea, Nausea. Denies: Vomiting Genitourinary: Denies: Dysuria Musculoskeletal: Reports: Joint Pain, Muscle pain. Denies: Joint Tenderness Skin: Denies: Rash, Wounds Neurological: Denies: Numbness, Tingling, Focal weakness Psychiatric: Reports: Anxiety, Depression. Denies: Homicidal Ideations, Suicidal Ideations Hematologic/ Lymphatic: Denies: Easy Bruising, Easy Bleeding VTE Information - Inpt Only VTE Present on Admission: No VTE Mechan Device Prophylaxis: None VTE Pharm Prophylaxis ordered?: No Reason prophylaxis not ordered:: Treatment Not Indicated Patient Problems: Active and Suspected Problems Polysubstance abuse (Acute) Subjective: Patient laying in the ED bed, fatigued appearance but also restless, shifting constantly. Objective: Physical Examination: General: awake, alert, oriented x 3 and cooperative, seated upright in the ED bed, restless, moving constantly. Skin: normal color, turgor, no icterus, cyanosis. HEENT: AT/NC, EOMI, PERRLA, mildly dry MM, rhinorrhea evident, no carotid bruits or JVD noted. Lungs: CTA bilaterally, moderate effort, moderate decrease BL bases, no rales, ronchi or wheezing. Heart: Mildly tachycardic with regular rhythm; no gallop, rub audible. Abdomen: soft, mild generalized discomfort with palpation, ND, moderately hyperactive BS, no HSM. Extremities: no cyanosis, clubbing, or edema. Neurological: patient awake, alert, oriented x 3; cognitive function intact; pupils equally reactive to light and accomodation; cranial nerves II-XII grossly normal, moving all 4 extremities, no focal deficits, strength moderately global decrease secondary to acute presentation, very restless, mild agitation. Psychiatric: affect appears mildly agitated, restless, no acute evidence of depressive or anxiety feelings. - Physical Exam Vitals/I&O's: Vital Signs Temp Pulse Resp BP Pulse Ox 98.3 F 92 18 104/70 98 01/15/20 19:41 01/15/20 19:41 01/15/20 19:41 01/15/20 19:41 01/15/20 19:41 Oxygen Delivery Method Room Air Weight: 105 lb Body Mass Index (BMI) 19.8 Laboratory Results 01/15/20 18:08: WBC 7.2, RBC 4.34, Hgb 12.3, Hct 39.0, MCV 89.9, MCH 28.3, MCHC 31.5 L, RDW Std Deviation 47.8 H, RDW Coeff of Chris 14.4, Plt Count 320, MPV 10.3, Immature Gran % (Auto) 0.300, Neut % (Auto) 34.2 L, Lymph % (Auto) 53.7 H, Ida % (Auto) 10.4 H, Eos % (Auto) 0.7, Baso % (Auto) 0.7, Absolute Neuts (auto) 2.5, Absolute Lymphs (auto) 3.88, Nucleated RBC % 0 08/13/20 18:08: Serum , Qual NEGATIVE 01/15/20 18:08: Sodium 141, Potassium 2.8 L, Chloride 108 H, Carbon Dioxide 28.0, Anion Gap 5, BUN 4 L, Creatinine 0.87, Estim Creat Clear Calc 71.74, Est GFR (MDRD) Af Amer 99, Est GFR (MDRD) Non-Af 82, BUN/Creatinine Ratio 4.6 L, Glucose 106, Calcium 8.8, Total Bilirubin 0.30, AST 30, ALT 209 H, Alkaline Phosphatase 209 H, Total Protein 8.8 H, Albumin 3.5, Globulin 5.3 H, Albumin/Gl obulin Ratio 0.7 L 01/15/20 18:08: Ethyl Alcohol 5.0 01/15/20 18:08: Magnesium 2.2 01/15/20 18:14: Urine Opiates Screen POSITIVE H, Urine Methadone Screen NEGATIVE, Ur Barbiturates Screen NEGATIVE, Ur Phencyclidine Scrn NEGATIVE, Ur Amphetamines Screen POSITIVE H, U Methamphetamin-MDMA POSITIVE H, U Benzodiazepines Scrn NEGATIVE, Urine Cocaine Screen NEGATIVE, U Cannabinoids Screen NEGATIVE, Ur Drug Screen Comment Assessment/Plan All Active Problems Acute opioid withdrawal (Acute) Desire for detoxification (Acute) Polysubstance abuse (Acute) The patient is a 29 y/o F w/ PMHx: Known Hepatitis C and A, Anxiety and Depression, Tobacco use, Polysubstance abuse with IVDA with ongoing frequent daily usage of fentanyl as well as methamphetamine who presents to the [facility] ED on 01/15/20, noting to be homeless, previously living at the [facility] with interest in opiate withdrawal treatment with acute opiate withdrawal onset. 1. Acute Opiate Withdrawal: Will admit to [facility], routine labs including CBC, CMP, urine for drug screen, urinalysis, obtained in the ED with electrolyte disturbances and noted elevated liver function studies which have been chronic. Will initiate and continue on withdrawal protocol with tapering course of Sub utex, as needed Librium, Sinemet, Catapres, Bentyl, Vistaril, IV fluids, IV antiemetics, Tylenol as needed for pain. Will request case management consultation and involvement for plan transition following acute inpatient withdrawal treatment for next level of care. Patient will also need assistance with living situation upon discharge. 2. Polysubstance Abuse, IVDA Hx, History of Hepatitis C, Chronic: Patient currently not candidate for hep C treatment currently as needs to be clean, sober x 6 months, documented attendance NA or AA meetings, counseling and ongoing negative drug screens. Once appropriate GI, ID to initiate. Patient notes recently having hepatitis panel performed with a also noted and a recent negative HIV test therefore will not repeat. 3. Hypokalemia: Admission K+ 2.8, magnesium level obtained and noted to be normal, supplementation given, repeat level in AM. 4. Chronically elevated LFTs: Patient admission CMP with AST/ALT , alk phos 209, chronically elevated likely secondary to chronic hepatitis C and she notes recent a infection, will repeat CMP in a.m. especially given concurrent electrolyte disturbances. Strongly encouraged to clean status to be able to initiate hepatitis treatments. 5. Tobacco Abuse: Encouraged cessation, inpatient consultation per RT, NR if desired. 6. DVT prophylaxis: Low risk, encourage ambulation. Inpatient E&M: 51012 Init Hosp L3
[2020-01-15 20:24] VITALS: BP 104/70; PULSE 92; RESP 18; TEMP 36.8; O2SAT 98
[2020-01-15 22:03] VITALS: BMI 20.2
[2020-01-15 22:34] VITALS: BP 106/65; PULSE 76; RESP 16; TEMP 36.9; O2SAT 100
[2020-01-15] MEDS: 0.9% Saline Lock 10 ML Syringe IV (22:40)
[2020-01-15] MEDS: Lactated Ringers 1,000 ML 125 ML IV (22:41)
[2020-01-15] MEDS: traZODone 100 MG Tablet PO (23:02)
[2020-01-16 00:22] VITALS: PULSE 89
[2020-01-16 02:07] VITALS: PULSE 103
[2020-01-16] MEDS: Buprenorphine HCl 2 MG TAB.SUBL SL ×3 (02:16→18:19)
[2020-01-16 04:30] VITALS: BP 97/55; PULSE 82; RESP 16; TEMP 36.6; O2SAT 100
[2020-01-16 06:55] LABS: Absolute Lymphocyte Count 3.05 X10^3/uL (0.83-4.51); Absolute Neutrophil Count 2.6 X10^3/uL (2.0-7.7); Basophil# 0.06 X10^3/uL; Basophil% 0.9 % (0-1); Eosinophil# 0.21 X10^3/uL; Eosinophils% 3.2 % (0-5); Hematocrit 37.3 % (37-47); Hemoglobin 11.6 g/dL (12.0-15.0); Lymphocyte # 3.05 X10^3/ul (4.0); Lymphocyte % 46.3 % (19-41); Mean Corp Hgb Conc 31.1 g/dL (32-36); Mean Corpuscular Hgb 27.8 pg (27.0-32.0); Mean Corpuscular Volume 89.4 fL (81-99); Mean Platelet Vol. 9.6 fl (6.2-12.0); Monocyte# 0.62 X10^3/uL; Monocyte% 9.4 % (0-10); NRBC Flagged by Analyzer 0 % (0-5); Neutrophil # 2.63 X10^3/uL (2.7-7.7); Neutrophil % 39.9 % (47-70); Platelet Count 284 K/mm3 (150-450); RBC Distribution Width CV 14.5 % (11.6-14.6); RBC Distribution Width SD 47.4 fl (35.1-43.9); Red Blood Count 4.17 M/mm3 (4.2-5.4); White Blood Count 6.6 K/mm3 (4.4-11.0)
[2020-01-16 07:18] LABS: ALB/GLOB Ratio 0.6 RATIO (0.9-2.4); AST(SGOT) 24 U/L (15-37); Alanine Aminotransfer ALT/SGPT 151 U/L (13-56); Albumin, Serum 2.7 g/dL (3.2-5.0); Alkaline Phosphatase 181 U/L (45-117); Anion Gap 7 (5-15); BUN 7 mg/dL (7-18); BUN/Creat Ratio 10.2 RATIO (10-20); Chloride 106 mmol/L (98-107); Creatinine, Serum 0.69 mg/dL (0.55-1.02); EST Glomerular Filtration Rate 107 mL/min (>60); Est Glom Filt Rate - Afr Amer 130 mL/min (>60); Estimated Creatinine Clearance 90.78 ml/min; Globulin 4.6 g/dL (2.2-4.2); Glucose 93 mg/dL (74-106); Protein, Total 7.3 g/dL (6.4-8.2); Sodium Level 139 mmol/L (136-145)
[2020-01-16 10:34] VITALS: BP 109/67; PULSE 80; RESP 18; TEMP 36.7; O2SAT 96
[2020-01-16] MEDS: Citalopram 20 MG Tablet PO (10:42)
[2020-01-16] MEDS: Ibuprofen 600 MG Tablet PO ×2 (10:43→18:19)
--- NOTE | 2020-01-16 12:31 | ADDICTION ---
This social studies teacher met with patient in her room to conduct ASAM, MSE and DUDIT assessments and to complete discharge planning. Patient was alert and oriented x4 and presented with depressed mood and congruent affect. She shared that she has been using Fentanyl on a daily basis. She states that she administers this substance via IV. She reports that she left [facility] program on 01/13/2020 to use because I felt sick. She reports motivation to reengage with [facility]. This commercial loan underwriter will contact [facility] and submit a referral. She is scheduled for an individual session on 01/20/2020 to potentially admit into Residential Treatment or to work with counselor to identify other Residential options and complete referrals. This commercial loan underwriter will fax completed assessments and discharge plan to [facility].
[2020-01-16 14:00] VITALS: BP 116/68; PULSE 62; RESP 18; TEMP 36.6; O2SAT 98
[2020-01-16] MEDS: Mag Hydrox/Al Hydrox/Simeth 30 ML UDC PO (15:52)
--- NOTE | 2020-01-16 16:58 | PCM.PROGNOTE ---
Patient Problems: Active and Suspected Problems Polysubstance abuse (Acute) Subjective: Patient was seen and examined today, she has no complaints of any muscle pain or abdominal discomfort. Patient does not complain of severe anxiety or tremor. - Physical Exam Vitals/I&O's: Vital Signs Temp Pulse Resp BP Pulse Ox 98.0 F 80 18 109/67 96 01/16/20 10:34 01/16/20 10:34 01/16/20 10:34 01/16/20 10:34 01/16/20 10:34 Oxygen Delivery Method Room Air Weight: 48.5 kg Body Mass Index (BMI) 20.2 Intake and Output for Last 24 Hours 01/14/20 01/15/20 01/16/20 23:59 23:59 23:59 Intake Total 993.75 / 993.75 Output Total 250 / 250 Balance 743.75 / 743.75 General: Alert, Oriented x3, Cooperative HEENT: Atraumatic, PERRLA, EOMI, Normocephalic Oral: Moist Mucosa Neck: Supple, No JVD, Trachea Midline, Thyroid Normal Size and Texture Lungs: Clear to auscultation, Normal air movement, No rhonchi, No wheeze, No rales Cardiovascular: Regular rate, Regular Rhythm, Normal S1, Normal S2, No murmurs, PMI Normal, No rub noted, No Gallop Abdomen: Bowel Sounds Present, Soft, Non Tender, Non-Distended Extremities: No clubbing, No cyanosis, No edema, Capillary Refill Less than 3 Seconds Skin: No rashes, No breakdown Musculoskeletal: No Tenderness to Palpation of Joints or Extremities Neurological: Cranial nerves II-XII grossly intact, Neuro grossly intact, Sensory exam intact to light touch and pain, Coordination normal Psych/Mental Status: Normal Affect, Appropriate, Alert and oriented to time, place, person, mood and affect Laboratory Results 01/15/20 18:08: WBC 7.2, RBC 4.34, Hgb 12.3, Hct 39.0, MCV 89.9, MCH 28.3, MCHC 31.5 L, RDW Std Deviation 47.8 H, RDW Coeff of Chris 14.4, Plt Count 320, MPV 10.3, Immature Gran % (Auto) 0.300, Neut % (Auto) 34.2 L, Lymph % (Auto) 53.7 H, [place] % (Auto) 10.4 H, Eos % (Auto) 0.7, Baso % (Auto) 0.7, Absolute Neuts (auto) 2.5, Absolute Lymphs (auto) 3.88, Nucleated RBC % 0 01/15/20 18:08: Serum , Qual NEGATIVE 01/15/20 18:08: Sodium 141, Potassium 2.8 L, Chloride 108 H, Carbon Dioxide 28.0, Anion Gap 5, BUN 4 L, Creatinine 0.87, Estim Creat Clear Calc 71.74, Est GFR (MDRD) Af Amer 99, Est GFR (MDRD) Non-Af 82, BUN/Creatinine Ratio 4.6 L, Glucose 106, Calcium 8.8, Total Bilirubin 0.30, AST 30, ALT 209 H, Alkaline Phosphatase 209 H, Total Protein 8.8 H, Albumin 3.5, Globulin 5.3 H, Albumin/Globulin Ratio 0.7 L 01/15/20 18:08: Ethyl Alcohol 5.0 01/15/20 18:08: Magnesium 2.2 01/15/20 18:14: Urine Opiates Screen POSITIVE H, Urine Methadone Screen NEGATIVE, Ur Barbiturates Screen NEGATIVE, Ur Phencyclidine Scrn NEGATIVE, Ur Amphetamines Screen POSITIVE H, U Methamphetamin-MDMA POSITIVE H, U Benzodiazepines Scrn NEGATIVE, Urine Cocaine Screen NEGATIVE, U Cannabinoids Screen NEGATIVE, Ur Drug Screen Comment 01/16/20 06:46: WBC 6.6, RBC 4.17 L, Hgb 11.6 L, Hct 37.3, MCV 89.4, MCH 27.8, MCHC 31.1 L, RDW Std Deviation 47.4 H, RDW Coeff of Chris 14.5, Plt Count 284, MPV 9.6, Immature Gran % (Auto) 0.300, Neut % (Auto) 39.9 L, Lymph % (Auto) 46.3 H, [place] % (Auto) 9.4, Eos % (Auto) 3.2, Baso % (Auto) 0.9, Absolute Neuts (auto) 2.6, Absolute Lymphs (auto) 3.05, Nucleated RBC % 0 01/16/20 06:46: Sodium 139, Potassium 4.0, Chloride 106, Carbon Dioxide 26.0, Anion Gap 7, BUN 7, Creatinine 0.69, Estim Creat Clear Calc 90.78, Est GFR (MDRD) Af Amer 130, Est GFR (MDRD) Non-Af 107, BUN/Creatinine Ratio 10.2, Glucose 93, Calcium 8.0 L, Total Bilirubin 0.20, AST 24, ALT 151 H, Alkaline Phosphatase 181 H, Total Protein 7.3, Albumin 2.7 L, Globulin 4.6 H, Albumin/Globulin Ratio 0.6 L Current Medications Acetaminophen (Tylenol) 500 mg PO Q4H PRN PRN PRN Reason: Temp > 100.4 F Al Hydroxide/Mg Hydroxide (Mylanta Ii) 30 ml PO Q4H PRN PRN PRN Reason: DYSPEPSIA Last Admin: 01/16/20 15:52 Dose: 30 ml Documented by: Buprenorphine HCl (Buprenorphine Hcl) 4 mg SL Q8H [facility]; Taper Stop: 01/19/20 02:14 Last Admin: 01/16/20 10:42 Dose: 4 mg Documented by: Citalopram Hydrobromide (Celexa) 20 mg PO DAILY [facility] Last Admin: 01/16/20 10:42 Dose: 20 mg Documented by: Ibuprofen (Motrin) 600 mg PO Q8H PRN PRN PRN Reason: Pain Score 1-10/10 Last Admin: 01/16/20 10:43 Dose: 600 mg Documented by: Loperamide HCl (Imodium) 2 mg PO Q4H PRN PRN PRN Reason: LOOSE STOOLS Nicotine (Nicoderm Cq (Pbkc)) 21 mg TRANSDERM. DAILY [facility] Last Admin: 01/16/20 10:42 Dose: 21 mg Documented by: Nutritional Formula (Lactose Free) (Ensure Enlive) 120 ml PO 4X/DAY [facility] Last Admin: 01/16/20 14:47 Dose: Not Given Documented by: Ondansetron HCl (Zofran Odt) 8 mg PO Q8H PRN PRN PRN Reason: NAUSEA Sodium Chloride () 10 - 40 ml IV UD PRN PRN Reason: SALINE FLUSH Last Admin: 01/15/20 22:40 Dose: 10 ml Documented by: Trazodone HCl (Desyrel) 100 mg PO QHS PRN PRN PRN Reason: INSOMNIA Last Admin: 01/15/20 23:02 Dose: 100 mg Documented by: Medical Necessity - Tobacco Use Smoking Status: Current every day smoker Tobacco Use: Cigarettes Assessment/Plan All Active Problems Acute opioid withdrawal (Acute) Desire for detoxification (Acute) Polysubstance abuse (Acute) #1 acute opiate withdrawal-continue present medications #2 chronic opiate addiction #3 polysubstance abuse #4 history of hepatitis C #5 elevated liver enzymes-possibly secondary to chronic hep C #6 hypokalemia-corrected at this time #7 chronic anxiety and depression Inpatient E&M: 01944 Subs Hosp L2
[2020-01-16 21:02] VITALS: BP 109/63; PULSE 79; RESP 16; TEMP 37.1; O2SAT 98
[2020-01-16] MEDS: traZODone 100 MG Tablet PO (21:14)
[2020-01-17 02:38] VITALS: BP 112/68; PULSE 90; RESP 16; TEMP 37; O2SAT 97
[2020-01-17] MEDS: Ibuprofen 600 MG Tablet PO ×2 (02:41→14:22)
[2020-01-17] MEDS: Buprenorphine HCl 2 MG TAB.SUBL SL ×3 (02:42→18:02)
[2020-01-17 08:40] VITALS: BP 107/60; PULSE 89; RESP 16; TEMP 36.8; O2SAT 99
[2020-01-17] MEDS: Citalopram 20 MG Tablet PO (09:09)
--- NOTE | 2020-01-17 11:06 | PN_ITS ---
Patient Problems: Active and Suspected Problems Polysubstance abuse (Acute) Subjective: Patient was seen and examined today, he does not complain of any nervousness or tremor, she has no nausea or muscle pain at this time. Patient is scheduled for a session at 180 on 01/20/2020. - Physical Exam Vitals/I&O's: Vital Signs Temp Pulse Resp BP Pulse Ox 98.2 F 89 16 107/60 99 01/17/20 08:40 01/17/20 08:40 01/17/20 08:40 01/17/20 08:40 01/17/20 08:40 Oxygen Delivery Method Room Air Weight: 48.5 kg Body Mass Index (BMI) 20.2 Intake and Output for Last 24 Hours 01/15/20 01/16/20 01/17/20 23:59 23:59 23:59 Intake Total 2843.75 / 2843.75 200 / 200 Output Total 250 / 250 Balance 2593.75 / 2593.75 200 / 200 General: Alert, Oriented x3, Cooperative, No apparent distress, Well developed, Well nourished HEENT: Atraumatic, PERRLA, EOMI, Normocephalic Oral: Moist Mucosa Neck: Supple, No JVD, Trachea Midline, Thyroid Normal Size and Texture Lungs: Clear to auscultation, Normal air movement, No rhonchi, No wheeze, No rales Cardiovascular: Regular rate, Regular Rhythm, Normal S1, Normal S2, No murmurs, PMI Normal, No rub noted, No Gallop Abdomen: Bowel Sounds Present, Soft, Non Tender, Non-Distended Extremities: No clubbing, No cyanosis, No edema, Capillary Refill Less than 3 Seconds Skin: No rashes, No breakdown Musculoskeletal: No Tenderness to Palpation of Joints or Extremities Neurological: Cranial nerves II-XII grossly intact, Neuro grossly intact, Sensory exam intact to light touch and pain, Coordination normal Psych/Mental Status: Normal Affect, Appropriate, Alert and oriented to time, place, person, mood and affect Current Medications Acetaminophen (Tylenol) 500 mg PO Q4H PRN PRN PRN Reason: Temp > 100.4 F Al Hydroxide/Mg Hydroxide (Mylanta Ii) 30 ml PO Q4H PRN PRN PRN Reason: DYSPEPSIA Last Admin: 01/16/20 15:52 Dose: 30 ml Documented by: Buprenorphine HCl (Buprenorphine Hcl) 2 mg SL Q8H [facility]; Taper Stop: 01/19/20 02:14 Last Admin: 01/17/20 10:15 Dose: 2 mg Documented by: Citalopram Hydrobromide (Celexa) 20 mg PO DAILY [facility] Last Admin: 01/17/20 09:09 Dose: 20 mg Documented by: Ibuprofen (Motrin) 600 mg PO Q8H PRN PRN PRN Reason: Pain Score 1-10/10 Last Admin: 01/17/20 02:41 Dose: 600 mg Documented by: Loperamide HCl (Imodium) 2 mg PO Q4H PRN PRN PRN Reason: LOOSE STOOLS Nicotine (Nicoderm Cq (Pbkc)) 21 mg TRANSDERM. DAILY [facility] Last Admin: 01/17/20 09:09 Dose: 21 mg Documented by: Nutritional Formula (Lactose Free) (Ensure Enlive) 120 ml PO 4X/DAY [facility] Last Admin: 01/17/20 09:12 Dose: 120 ml Documented by: Ondansetron HCl (Zofran Odt) 8 mg PO Q8H PRN PRN PRN Reason: NAUSEA Sodium Chloride () 10 - 40 ml IV UD PRN PRN Reason: SALINE FLUSH Last Admin: 01/15/20 22:40 Dose: 10 ml Documented by: Trazodone HCl (Desyrel) 100 mg PO QHS PRN PRN PRN Reason: INSOMNIA Last Admin: 01/16/20 21:14 Dose: 100 mg Documented by: Medical Necessity - Tobacco Use Smoking Status: Current every day smoker Tobacco Use: Cigarettes Assessment/Plan All Active Problems Acute opioid withdrawal (Acute) Desire for detoxification (Acute) Polysubstance abuse (Acute) #1 acute opiate withdrawal-continue present medications, patient will have follow-up with 180 next week #2 chronic opiate addiction #3 polysubstance abuse #4 history of hepatitis C #5 elevated liver enzymes-possibly secondary to chronic hep C #6 hypokalemia-corrected at this time #7 chronic anxiety and depression Inpatient E&M: 00161 [facility] Hosp L2
[2020-01-17 14:18] VITALS: BP 109/67; PULSE 85; RESP 18; TEMP 36.7; O2SAT 98
[2020-01-17 20:04] VITALS: BP 120/77; PULSE 73; RESP 18; TEMP 36.8; O2SAT 99
[2020-01-17] MEDS: traZODone 100 MG Tablet PO (22:28)
[2020-01-18 02:19] VITALS: BP 110/61; PULSE 70; RESP 18; TEMP 36.5; O2SAT 99
[2020-01-18] MEDS: Buprenorphine HCl 2 MG TAB.SUBL SL (02:25)
[2020-01-18 08:00] VITALS: BP 99/60; PULSE 79; RESP 18; TEMP 36.7; O2SAT 99
[2020-01-18] MEDS: Citalopram 20 MG Tablet PO (08:14)
--- NOTE | 2020-01-18 09:20 | DCINST_ITS ---
- Discharge Diagnoses Current Active Problems: Current Active and Chronic Problems Polysubstance abuse (Acute) Hypokalemia (Chronic) Elevated liver enzymes (Chronic) Hepatitis C (Chronic) Hepatitis A (Chronic) You will use the following diet at home:: No restrictions Your food should be the consistency of: Regular Your liquids should be the consistency of: Regular/Thin Discharge Activity: Return to Normal Activity Weight Bearing Status: Full weight bearing Additional Instructions: go to inpatient detox center as scheduled Allergies/Adverse Reactions: Allergies No Known Allergies Allergy (Verified 01/15/20 17:43) Medications to take at Discharge Citalopram [Celexa] 20 mg PO DAILY 11/19/19 Primary Care Physician: Care Physician,No Primary [Primary Care Provider] - Test Results: Test results from this visit will be discussed in further detail at your follow- up appointment, if applicable.
--- NOTE | 2020-01-18 10:10 | PCM.DC.SUM ---
Discharge Date and Diagnosis Date of Admission: 01/15/20 Date of Discharge: 01/18/20 - Primary Discharge Diagnosis Acute Problems: #1 acute opiate withdrawal #2 chronic opiate addiction #3 polysubstance abuse #4 history of hepatitis C #5 elevated liver enzymes-possibly secondary to chronic hep C #6 hypokalemia #7 chronic anxiety and depression - Secondary Discharge Diagnosis Chronic Problems: Chronic Problems Anxiety and depression (Chronic) Polysubstance (including opioids) dependence, daily use (Chronic) Nicotine dependence (Chronic) Hypokalemia (Chronic) Elevated liver enzymes (Chronic) Hepatitis C (Chronic) Hepatitis A (Chronic) Hospital Course and Treatment Operations: None Procedures: None Summary of Care Provided: The patient is a 29 year old F was seen in the emergency room at [facility] with a request of entering the detox program here at the hospital. Patient stated that she uses fentanyl daily, she also admits to using methamphetamines. Labs were obtained on the patient, patient's potassium was low at 2.8, liver enzymes were elevated, CBC was unremarkable, patient's tox screen was positive for opiates amphetamines and methamphetamines. Patient was admitted to [place] [address] and orders were entered using the opiate withdrawal order set, patient was seen by a perinatal social worker from [facility] and they arrange for the patient to go to an inpatient detox program at the time of discharge. She had no major complications during her hospitalization. On 01/18/2020, patient was seen and examined: On examination she appeared in good health and spirits, she does not appear to be in any distress. Vital signs as documented. Skin warm and dry and without overt rashes. Neck without JVD, thyroid appears normal, trachea is midline, neck is supple. Lungs clear, normal air movement was noted. Heart exam notable for regular rhythm, normal sounds and absence of murmurs, rubs or gallops. Abdomen unremarkable and without evidence of organomegaly, masses, or abdominal aortic enlargement, bowel sounds are present in all 4 quadrants, no abdominal tenderness was noted. Extremities nonedematous, no cyanosis was noted, no clubbing was noted. Neuro: Cranial nerves II through XII are grossly intact, no focal motor deficits were noted, sensation to light touch and pinprick is intact, motor exam 5/5 throughout. Psych: Patient is alert and oriented x3, she does not appear anxious or depressed, she does not appear agitated. Patient was accepted into an inpatient detox program on 01/18/2020, she was discharged from the hospital on that date in stable condition. - Physical Exam Vitals/I&O's: Vital Signs Temp Pulse Resp BP Pulse Ox 98.0 F 79 18 99/60 99 01/18/20 08:00 01/18/20 08:00 01/18/20 08:00 01/18/20 08:00 01/18/20 08:00 Oxygen Delivery Method Room Air Weight: 48.5 kg Body Mass Index (BMI) 20.2 Intake and Output for Last 24 Hours 01/16/20 01/17/20 01/18/20 23:59 23:59 23:59 Intake Total 2843.75 / 2843.75 920 / 920 900 / 900 Output Total 250 / 250 Balance 2593.75 / 2593.75 920 / 920 900 / 900 Discharge Activity: Return to Normal Activity Weight Bearing Status: Full weight bearing Home Medications: Medications to take at Discharge Citalopram [Celexa] 20 mg PO DAILY 11/19/19 Primary Care Physician: Care Physician,No Primary [Primary Care Provider] - Disposition: Inpt Rehab Unit/Facility Minutes spent on discharge:: 31 Patient Condition:: Stable Medical Necessity - Tobacco Use Smoking Status: Current every day smoker Tobacco Use: Cigarettes Meaningful Use Info Meaningful Use Diagnoses (Choose all that apply): None applicable Inpatient E&M: 09062 Disch Hosp
== END 2020-01-18 09:50 | disposition home or self-care (01) | DRG 897 ==
LOC: ED 19:10 → MS3 21:26
PROVIDERS: Admitting Provider Family Medicine; Emergency Provider Emergency Medicine; Visit Provider Internal Medicine
DX: F11.23 Opioid dependence with withdrawal (principal); B15.9 Hepatitis A without hepatic coma; F15.90 Other stimulant use, unspecified, uncomplicated; F17.210 Nicotine dependence, cigarettes, uncomplicated; E87.6 Hypokalemia; R74.8 Abnormal levels of other serum enzymes; F32.9 Major depressive disorder, single episode, unspecified; F41.9 Anxiety disorder, unspecified; B18.2 Chronic viral hepatitis C; Z59.0 Homelessness; R94.31 Abnormal electrocardiogram [ECG] [EKG]
CPT/HCPCS: 36415; 80053; 80307; 80320; 83735; 84703; 85025; 93005; 97802; 99283; J7120; A4216; G0480

== ENCOUNTER 2020-02-10 20:45 | Inpatient (IN) | payer BC, MEDICAID, SELFPAY ==
[2020-01-15 22:03] VITALS: BMI 20.2
[2020-02-10 20:46] VITALS: BP 92/64; PULSE 78; RESP 18; TEMP 36.2; O2SAT 99; BMI 19.6
--- NOTE | 2020-02-10 21:38 | ED.DCSUM_ITS ---
- ER Visit Summary Date of Service: 02/10/20 Chief Complaint: Requesting detox History of Present Illness: The patient is a 29 F presenting requesting detox. Patient states that she would like to have detox from both fentanyl and ice. She injects in both her arms. Her last use was 1 hour ago. Her last detox was less than 1 month ago. She states she used immediately after discharge. She has a history of hepatitis. She admits to occasional alcohol use, tobacco use, fentanyl, methamphetamine. Physical Examination: Vitals are stable. Patient is afebrile. Alert no acute distress. HEENT exam is unremarkable. Neck is supple. Lungs are clear and equal bilaterally. Heart is regular rate and rhythm. Abdomen is soft nontender nondistended. Extremities bilateral track [place] Skin is warm and dry. No focal neurologic deficit. Remainder of exam is unremarkable. Emergency Department Course and Treatment: Labs are pending. Discussed with the hospitalist. Patient will be admitted. Disposition: Admission Impression: Opiate dependence This note was generated with [employer] dictation software. It may contain incorrect words, spelling, and punctuation that were not noted in review of the chart prior to signing ED Disposition - Plan for ED Patient: Referrals: Care Physician,No Primary [Primary Care Provider] -
--- NOTE | 2020-02-10 22:33 | HP.PCM_ITS ---
Problem List (1) Acute opioid withdrawal Status: Acute (2) Anxiety and depression Status: Chronic (3) Polysubstance (including opioids) dependence, daily use Status: Chronic (4) Nicotine dependence Status: Chronic Qualifiers: Nicotine product type: unspecified Substance use status: unspecified nicotine-induced disorder Qualified Code(s): F17.209 - Nicotine dependence, unspecified, with unspecified nicotine-induced disorders (5) Elevated liver enzymes Status: Chronic (6) Hepatitis C Status: Chronic Qualifiers: Viral hepatitis chronicity: chronic (7) Hepatitis A Status: Chronic Qualifiers: Hepatic coma status: without hepatic coma Qualified Code(s): B15.9 - Hepatitis A without hepatic coma History of Present Illness Date of Admission: 02/10/20 Chief Complaint: Acute Opiate Withdrawal The patient is a 29 y/o F w/ PMHx: Known Hepatitis C and A, Anxiety and Depression, Tobacco use, Polysubstance abuse with IVDA with ongoing frequent daily usage of fentanyl as well as methamphetamine recently admitted on 01/15/2020 and discharged on 01/18/20 for acute opiate withdrawal noting at that time that she been encouraged by individuals the [facility] and did complete the program however upon discharge had near immediately resumed usage of IV fentanyl and IV methamphetamines who now represents to the [facility] ED on 02/10/20 with history of last injection of approximately $40 worth of IV fentanyl early in the day on day of ED presentation and noting last methamphetamine usage IV the day prior with onset of abdominal cramping and discomfort, generalized body aches and pains, congestion and rhinorrhea, fatigue, restlessness, diaphoresis coupled with intermittent fatigue. Discussed frankly that patient had been in several programs recently and that this cannot be a method for avoiding withdrawal if she did not have the means to buy substances. She notes that she is interested in being clean and this time it is been her decision with no external encouragement. She notes that she is interested in transitioning [facility] and states that this would be a better method for her to obtain long-term clean status. She does note that when she was discharged and resumed utilizing IV drugs she did so with her previous friendsbut does intend to discontinue these relationships. Work-up in the ED included T 97.2, heart rate 78, BP 92/64, respiratory rate 18, 99% on room air, pending urine drug screen, blood alcohol, CMP and serum upon requested evaluation of patient. Past Medical History Past Medical History (Chronic Problems): Chronic Problems Anxiety and depression (Chronic) Polysubstance (including opioids) dependence, daily use (Chronic) Nicotine dependence (Chronic) Hypokalemia (Chronic) Elevated liver enzymes (Chronic) Hepatitis C (Chronic) Hepatitis A (Chronic) Allergies No Known Allergies Allergy (Verified 02/10/20 20:46) Home Medications: Ambulatory Orders Medication Instructions Recorded NK 02/10/20 Surgical History: - - Patient denies any prior surgical history. Psychiatric History: Anxiety, Depression RETAIL DEPARTMENT RESET History: No pertinent RETAIL DEPARTMENT RESET history Lives: Homeless Smoking Status: Current every day smoker - Ongoing 1 pack/day cigarette tobacco usage. Tobacco Use: Cigarettes Alcohol: None Drugs: - - Patient with ongoing methamphetamine, fentanyl IV drug abuse. - *Family History Paternal History Items: - - Father had chronic alcohol use and dependence disorder but notes no knowledge of any other medical history as she does not have any interactions with him. Maternal History Items: Pulmonary Disease - Patient notes a maternal family history of some type of lung disease, unclear type, possibly asthma or COPD with prior tobacco use history noted in her mother. Review of Systems Constitutional: Reports: Anorexia, Chills, Malaise, Weakness, Fatigue. Denies: Fever, Weight Change HEENT: Reports: Nasal Congestion, Post Nasal Drip, Sinus Congestion. Denies: Head Aches, Sinus Drainage Cardiovascular: Denies: Chest Pain, Palpitations Respiratory: Denies: Cough, Shortness of Breath, Shortness of breath at rest, Shortness of breath upon exertion, Sputum production Gastrointestinal: Reports: Abdominal Pain, Nausea. Denies: Vomiting Genitourinary: Denies: Dysuria Musculoskeletal: Reports: Joint Pain, Muscle pain. Denies: Joint Tenderness Skin: Reports: Skin Changes. Denies: Rash, Wounds Neurological: Denies: Numbness, Tingling, Focal weakness Psychiatric: Reports: Anxiety, Depression. Denies: Homicidal Ideations, Suicidal Ideations Hematologic/ Lymphatic: Denies: Easy Bruising, Easy Bleeding VTE Information - Inpt Only VTE Present on Admission: No VTE Mechan Device Prophylaxis: None VTE Pharm Prophylaxis ordered?: No Reason prophylaxis not ordered:: Treatment Not Indicated Subjective: Laying in the bed, extremely restless, more so even than previous evaluation during prior admission, agitated. Objective: Physical Examination: General: awake, alert, oriented x 3 and cooperative, seated upright in the ED bed, very restless and agitated. Skin: normal color, turgor, no icterus, cyanosis except significant upper extremity track [place], no evidence of any erythema. HEENT: AT/NC, EOMI, PERRLA, mildly dry MM, rhinorrhea evident, no carotid bruits or JVD noted. Lungs: CTA bilaterally, moderate effort, moderate decrease BL bases, no rales, ronchi or wheezing. Heart: Currently regular rate and regular rhythm; no gallop, rub audible. Abdomen: soft, mild generalized discomfort with palpation, ND, moderately hyperactive BS, no HSM. Extremities: no cyanosis, clubbing, or edema. Neurological: patient awake, alert, oriented x 3; cognitive function suspect near baseline intact; pupils equally reactive to light and accomodation; cranial nerves II-XII grossly normal, moving all 4 extremities, no focal deficits, strength mildly to moderately global decrease secondary to acute presentation, extremely agitated, restless. Psychiatric: affect appears both agitated and restless, even more so than prior admission, no acute evidence of depressive or anxiety feelings. - Physical Exam Vitals/I&O's: Vital Signs Temp Pulse Resp BP Pulse Ox 97.2 F L 78 18 92/64 99 02/10/20 20:46 02/10/20 20:46 02/10/20 20:46 02/10/20 20:46 02/10/20 20:46 Oxygen Delivery Method Room Air Weight: 104 lb Body Mass Index (BMI) 19.6 Laboratory Results 02/10/20 22:00: Urine Opiates Screen Pending, Urine Methadone Screen Pending, Ur Barbiturates Screen Pending, Ur Phencyclidine Scrn Pending, Ur Amphetamines Screen Pending, U Methamphetamin-MDMA Pending, U Benzodiazepines Scrn Pending, Urine Cocaine Screen Pending, U Cannabinoids Screen Pending, Ur Drug Screen Comment Assessment/Plan All Active Problems Acute opioid withdrawal (Acute) Desire for detoxification (Acute) Polysubstance abuse (Acute) The patient is a 29 y/o F w/ PMHx: Known Hepatitis C and A, Anxiety and Depression, Tobacco use, Polysubstance abuse with IVDA with ongoing frequent daily usage of fentanyl as well as methamphetamine recently admitted on 01/15/2020 and discharged on 01/18/20 for acute opiate withdrawal with near immediately resumed usage of IV fentanyl and IV methamphetamines following d/c who now represents to the [facility] ED on 02/10/20 with history of last injection of approximately $40 worth of IV fentanyl early in the day on day of ED p resentation with onset withdrawal. 1. Acute Opiate Withdrawal: ED labs pending upon evaluation. Will admit to [facility], initiate and continue on withdrawal protocol with tapering course of Subutex, as needed PRN agents for withdrawal symptoms, IV fluids, IV antiemetics, Tylenol as needed for pain. Will request case management consultation and involvement for plan transition following acute inpatient withdrawal treatment for next level of care in addition to assistance with transitioning [facility] to [facility] per her request. Patient currently remains homeless but states she is recently been staying with a friend. 2. Polysubstance Abuse, IVDA Hx, History of Hepatitis C, Chronic: Patient with history of hepatitis A and C. She remains not a candidate for treatment of her hepatitis C secondary to ongoing IV drug abuse. And encouraged continued clean and sober status for at least 6 months with counseling and negative drug screens to initiate treatment. HIV and hepatitis panel recently performed again confirmed per her therefore will not repeat. 3. Chronically elevated LFTs: Patient with chronic LFT elevations, CMP pending upon requested evaluation of patient during this admission, prior with AST/ALT 30/209, alk phos 209, similar, likely secondary to patient underlying hepatitis history. 4. Tobacco Abuse: Encouraged cessation, inpatient consultation per RT, NR if desired. 5. DVT prophylaxis: Low risk, encourage ambulation. Inpatient E&M: 59777 Init Hosp L3
[2020-02-10 22:46] VITALS: BP 114/84; PULSE 80; RESP 14; TEMP 36.2; O2SAT 99
[2020-02-10 22:48] LABS: Amphetamine Urine VISTA POSITIVE (<1000 ng/mL); Barbiturate Urine VISTA NEGATIVE (< 200 ng/mL); Benzodiazepine Urine VISTA NEGATIVE (< 200 ng/mL); Cocaine Urine VISTA NEGATIVE (< 300 ng/mL); Ecstacy Urine VISTA POSITIVE (< 500 ng/mL); Methadone Urine VISTA NEGATIVE (< 300 ng/mL); PCP Urine VISTA NEGATIVE (< 25 ng/mL); THC Urine VISTA NEGATIVE (< 50 ng/mL); Vista UDS pH Range 5
[2020-02-10 23:07] VITALS: BMI 19.1; BMI 19.2
[2020-02-10 23:13] VITALS: BP 106/58; PULSE 84; RESP 16; TEMP 36.8; O2SAT 100
[2020-02-10 23:13] LABS: Internal QC Validated? YES +Cl - CLEAR BKGD; Pregnancy, Serum, hCG Quali. NEGATIVE Negative
[2020-02-10 23:22] LABS: ALB/GLOB Ratio 0.8 RATIO (0.9-2.4); AST(SGOT) 22 U/L (15-37); Alanine Aminotransfer ALT/SGPT 19 U/L (13-56); Albumin, Serum 3.2 g/dL (3.2-5.0); Alkaline Phosphatase 94 U/L (45-117); Anion Gap 7 (5-15); BUN 10 mg/dL (7-18); BUN/Creat Ratio 13.4 RATIO (10-20); Calcium,Total 8.6 mg/dL (8.5-10.1); Chloride 106 mmol/L (98-107); Creatinine, Serum 0.75 mg/dL (0.55-1.02); EST Glomerular Filtration Rate 97 mL/min (>60); Est Glom Filt Rate - Afr Amer 118 mL/min (>60); Estimated Creatinine Clearance 80.37 ml/min; Glucose 77 mg/dL (74-106); Potassium 3.6 mmol/L (3.5-5.1); Protein, Total 7.2 g/dL (6.4-8.2); Sodium Level 139 mmol/L (136-145)
[2020-02-11 03:56] VITALS: BP 111/64; PULSE 63; RESP 16; TEMP 36.8; O2SAT 100
--- NOTE | 2020-02-11 09:00 | ADDICTION ---
THis financial writer attempted to meet with patient in her room. Patient did not rouse to this financial writer's (3) verbal attempts to engage with her. This financial writer will attempt to meet with patient at next visit.
--- NOTE | 2020-02-11 10:24 | PCM.PN.HOSP ---
Reason for Visit: Acute opioid withdrawal Objective: Patient is sleepy, drowsy and lethargic. She is feeling cold, anxiety, restlessness and tremors. Vitals/I&O's: Vital Signs Temp Pulse Resp BP Pulse Ox 98.2 F 63 16 111/64 100 02/11/20 03:56 02/11/20 03:56 02/11/20 03:56 02/11/20 03:56 02/11/20 03:56 Oxygen Delivery Method Room Air Weight: 101 lb 6.602 oz Body Mass Index (BMI) 19.1 Intake and Output for Last 24 Hours 02/09/20 02/10/20 02/11/20 23:59 23:59 23:59 Intake Total 490 / 490 Balance 490 / 490 General: Lethargic HEENT: Atraumatic, PERRLA, EOMI, Normocephalic Neck: Supple, No JVD, Negative Carotid Bruits Lungs: Clear to auscultation, Normal air movement, No rhonchi, No wheeze, No rales Cardiovascular: Regular rate, Regular Rhythm, Normal S1, Normal S2, No murmurs Abdomen: Bowel Sounds Present, Soft, Non Tender, Non-Distended Extremities: No edema, Capillary Refill Less than 3 Seconds Skin: No rashes, No breakdown Musculoskeletal: No Tenderness to Palpation of Joints or Extremities Neurological: Cranial nerves II-XII grossly intact, Deep Tendon Reflexes 2+/4 and Symmetrical, Neuro grossly intact, Motor Exam 5/5 strength throughout Psych/Mental Status: Normal Affect, Appropriate Laboratory Results 02/10/20 22:00: Urine Opiates Screen POSITIVE H, Urine Methadone Screen NEGATIVE, Ur Barbiturates Screen NEGATIVE, Ur Phencyclidine Scrn NEGATIVE, Ur Amphetamines Screen POSITIVE H, U Methamphetamin-MDMA POSITIVE H, U Benzodiazepines Scrn NEGATIVE, Urine Cocaine Screen NEGATIVE, U Cannabinoids Screen NEGATIVE, Ur Drug Screen Comment 02/10/20 22:51: Sodium 139, Potassium 3.6, Chloride 106, Carbon Dioxide 26.0, Anion Gap 7, BUN 10, Creatinine 0.75, Estim Creat Clear Calc 80.37, Est GFR (MDRD) Af Amer 118, Est GFR (MDRD) Non-Af 97, BUN/Creatinine Ratio 13.4, Glucose 77, Calcium 8.6, Total Bilirubin 0.20, AST 22, ALT 19, Alkaline Phosphatase 94, Total Protein 7.2, Albumin 3.2, Globulin 4.0, Albumin/Globulin Ratio 0.8 L 02/10/20 22:51: Ethyl Alcohol 10.0 02/10/20 22:51: Serum , Qual NEGATIVE Current Medications Acetaminophen (Tylenol) 500 mg PO Q4H PRN PRN PRN Reason: Temp > 100.4 F Al Hydroxide/Mg Hydroxide (Mylanta Ii) 30 ml PO Q6H PRN PRN PRN Reason: dyspesia Albuterol Sulfate (Ventolin Aerosols) 2.5 mg INHALATION Q2H PRN PRN PRN Reason: Dyspnea, wheezing Bisacodyl (Dulcolax) 10 mg RECTAL DAILY PRN PRN Reason: Constipation Buprenorphine HCl (Buprenorphine Hcl) 0 mg SL Q8H JUSTIN; Taper Stop: 02/13/20 22:44 Clonidine (Catapres) 0.1 mg PO Q8H PRN PRN PRN Reason: RESTLESSNESS Dicyclomine HCl (Bentyl) 20 mg PO Q6H PRN PRN PRN Reason: Abdominal Discomfort Gabapentin (Neurontin) 300 mg PO Q8H PRN PRN PRN Reason: moderate to severe anxiety Hydralazine HCl (Apresoline Iv) 10 mg IV Q4H PRN PRN PRN Reason: SBP > 160 Hydroxyzine Pamoate (Vistaril Pamoate Capsule) 50 mg PO Q6H PRN PRN PRN Reason: mild anxiety Ibuprofen (Motrin) 600 mg PO Q8H PRN PRN PRN Reason: Pain Score 1-10/10 Loperamide HCl (Imodium) 2 mg PO Q4H PRN PRN PRN Reason: LOOSE STOOLS Methocarbamol (Methocarbamol) 1,500 mg PO Q6H PRN PRN PRN Reason: MUSCLE SPASM Nicotine (Nicoderm Cq (Pbkc)) 21 mg TRANSDERM. DAILY [facility] Last Admin: 02/10/20 23:43 Dose: 21 mg Documented by: Nutritional Formula (Lactose Free) (Ensure Enlive) 120 ml PO 4X/DAY [facility] Ondansetron HCl (Zofran Odt) 8 mg PO Q8H PRN PRN PRN Reason: NAUSEA Senna (Senokot) 2 tablet PO QHS PRN PRN Reason: Constipation Trazodone HCl (Desyrel) 100 mg PO QHS PRN PRN PRN Reason: INSOMNIA Medical Necessity - Tobacco Use Smoking Status: Current every day smoker Tobacco Use: Cigarettes Assessment/Plan All Active Problems Acute opioid withdrawal (Acute) Desire for detoxification (Acute) Polysubstance abuse (Acute) The patient is a 29 y/o F with history of chronic hepatitis C and A, polysubstance use with IVDA, methamphetamine and recurrent admission for detoxification/medical stabilization for acute opioid withdrawal came to ED and was admitted for acute opioid withdrawal syndrome. 1. Acute Opiate Withdrawal: Patient uses IV fentanyl in both arms. The last dose was 1 hour prior to admission. Patient is on buprenorphine based other supportive medications. 2. Polysubstance Abuse, IVDA fentanyl and methamphetamine,: Patient with history of hepatitis A and C. Patient will need outpatient evaluation and treatment for hepatitis C once she is sober. U tox positive of opioids, amphetamines and methamphetamines. Alcohol level was 10. 3. Chronic liver disease secondary to hepatitis C and polysubstance use: Patient transaminases were elevated but now normal. ALT 209 in January 2020, currently 19. Serum albumin 3.2. 4. Tobacco Abuse: On nicotine patch. Encourage cessation. 5. DVT prophylaxis: Low risk, encourage ambulation. Inpatient E&M: 15701 Subs Hosp L2
[2020-02-11 10:50] VITALS: BP 99/59; PULSE 71; RESP 16; TEMP 37.1; O2SAT 100
[2020-02-11 15:46] VITALS: BP 106/62; PULSE 63; RESP 16; TEMP 37.1; O2SAT 100
[2020-02-11 21:23] VITALS: BP 115/72; PULSE 81; RESP 16; TEMP 36.7; O2SAT 100
[2020-02-11] MEDS: Ibuprofen 600 MG Tablet PO (21:31)
[2020-02-12] MEDS: Ondansetron ODT 4 MG Tablet 8 MG PO ×2 (00:01→08:15)
[2020-02-12] MEDS: Buprenorphine HCl 2 MG TAB.SUBL 4 MG SL ×2 (00:30→09:07)
[2020-02-12 05:46] VITALS: BP 120/69; PULSE 87; RESP 16; TEMP 36.8; O2SAT 98
[2020-02-12 07:34] VITALS: O2SAT 94
--- NOTE | 2020-02-12 08:19 | PCM.PN.HOSP ---
Reason for Visit: Acute opioid withdrawal. Frequent relapses. Objective: Patient states she does not want inpatient drug rehab. Patient is more awake than yesterday but he still has tremors, hot and cold sensation and restlessness. Vitals/I&O's: Vital Signs Temp Pulse Resp BP Pulse Ox 98.3 F 87 16 120/69 94 02/12/20 05:46 02/12/20 05:46 02/12/20 05:46 02/12/20 05:46 02/12/20 07:34 Oxygen Delivery Method Room Air Weight: 101 lb 6.602 oz Body Mass Index (BMI) 19.1 Intake and Output for Last 24 Hours 02/10/20 02/11/20 02/12/20 23:59 23:59 23:59 Intake Total 845 / 845 0 / 0 Balance 845 / 845 0 / 0 General: Alert, Oriented x3, Cooperative HEENT: Atraumatic, PERRLA, EOMI, Normocephalic Neck: Supple, No JVD, Negative Carotid Bruits Lungs: Clear to auscultation, Normal air movement Cardiovascular: Regular rate, Regular Rhythm, Normal S1, Normal S2, No murmurs Abdomen: Bowel Sounds Present, Soft, Non Tender, Non-Distended Extremities: No edema, Capillary Refill Less than 3 Seconds Skin: No rashes, No breakdown Musculoskeletal: No Tenderness to Palpation of Joints or Extremities Neurological: Cranial nerves II-XII grossly intact, Deep Tendon Reflexes 2+/4 and Symmetrical, Neuro grossly intact Psych/Mental Status: Normal Affect, Appropriate Current Medications Acetaminophen (Tylenol) 500 mg PO Q4H PRN PRN PRN Reason: Temp > 100.4 F Al Hydroxide/Mg Hydroxide (Mylanta Ii) 30 ml PO Q6H PRN PRN PRN Reason: dyspesia Albuterol Sulfate (Ventolin Aerosols) 2.5 mg INHALATION Q2H PRN PRN PRN Reason: Dyspnea, wheezing Bisacodyl (Dulcolax) 10 mg RECTAL DAILY PRN PRN Reason: Constipation Buprenorphine HCl (Buprenorphine Hcl) 4 mg SL Q8H [facility]; Taper Stop: 02/15/20 00:29 Last Admin: 02/12/20 00:30 Dose: 4 mg Documented by: Clonidine (Catapres) 0.1 mg PO Q8H PRN PRN PRN Reason: RESTLESSNESS Dicyclomine HCl (Bentyl) 20 mg PO Q6H PRN PRN PRN Reason: Abdominal Discomfort Gabapentin (Neurontin) 300 mg PO Q8H PRN PRN PRN Reason: moderate to severe anxiety Hydralazine HCl (Apresoline Iv) 10 mg IV Q4H PRN PRN PRN Reason: SBP > 160 Hydroxyzine Pamoate (Vistaril Pamoate Capsule) 50 mg PO Q6H PRN PRN PRN Reason: mild anxiety Ibuprofen (Motrin) 600 mg PO Q8H PRN PRN PRN Reason: Pain Score 1-10/10 Last Admin: 02/11/20 21:31 Dose: 600 mg Documented by: Loperamide HCl (Imodium) 2 mg PO Q4H PRN PRN PRN Reason: LOOSE STOOLS Methocarbamol (Methocarbamol) 1,500 mg PO Q6H PRN PRN PRN Reason: MUSCLE SPASM Nicotine (Nicoderm Cq (Pbkc)) 21 mg TRANSDERM. DAILY [facility] Last Admin: 02/11/20 21:26 Dose: Not Given Documented by: Nutritional Formula (Lactose Free) (Ensure Enlive) 120 ml PO 4X/DAY [facility] Last Admin: 02/11/20 21:26 Dose: Not Given Documented by: Ondansetron HCl (Zofran Odt) 8 mg PO Q8H PRN PRN PRN Reason: NAUSEA Last Admin: 02/12/20 08:15 Dose: 8 mg Documented by: Senna (Senokot) 2 tablet PO QHS PRN PRN Reason: Constipation Trazodone HCl (Desyrel) 100 mg PO QHS PRN PRN PRN Reason: INSOMNIA STROKE Vital Signs/Narrative: Vital Signs Temp Pulse Resp BP Pulse Ox 02/12/20 07:34 94 02/12/20 05:46 98.3 F 87 16 120/69 98 Medical Necessity - Tobacco Use Smoking Status: Current every day smoker Tobacco Use: Cigarettes Assessment/Plan All Active Problems Acute opioid withdrawal (Acute) Desire for detoxification (Acute) Polysubstance abuse (Acute) The patient is a 29 y/o F with history of chronic hepatitis C and A, polysubstance use with IVDA, methamphetamine and recurrent admission for detoxification/medical stabilization for acute opioid withdrawal came to ED and was admitted for acute opioid withdrawal syndrome. 1. Acute Opiate Withdrawal: Patient uses IV fentanyl in both arms. The last dose was 1 hour prior to admission. Patient is on buprenorphine based other supportive medications. 02/11: Symptom control is better. Patient is more awake. Heart rate and blood pressure controlled. Refused for inpatient drug rehab. 2. Polysubstance Abuse, IVDA fentanyl and methamphetamine,: Patient with history of hepatitis A and C. Patient will need outpatient evaluation and treatment for hepatitis C once she is sober. U tox positive of opioids, amphetamines and methamphetamines. Alcohol level was 10. 3. Chronic liver disease secondary to hepatitis C and polysubstance use: Patient transaminases were elevated but now normal. ALT 209 in January 2020, currently 19. Serum albumin 3.2. 4. Tobacco Abuse: On nicotine patch. Encourage cessation. 5. DVT prophylaxis: Low risk, encourage ambulation. Inpatient E&M: 48932 Subs Hosp L2
[2020-02-12 08:30] VITALS: BP 114/69; PULSE 83; RESP 16; TEMP 37.2; O2SAT 98
--- NOTE | 2020-02-12 11:59 | NT.THERAPY_ITS ---
Nutrition Therapy Report - History Nutrition Services has been consulted to:: Manage nutrient details of diet order Current diet / nutrition support order:: Regular; Ensure Enlive 120 ml medpass, Ensure Clear and magic cup/ensure pudding w/ meals. - Anthropometric Measurements Height:: 5 ft 1 in Weight:: 46 kg Body Mass Index (BMI):: 19.1 - Relevant Labs Relevant Labs:: Albumin/Globulin Ratio 0.8 RATIO (0.9-2.4) L 02/10/20 22:51 - Assessment Food / Nutrition-Related History:: Pt reports I'm somewhat homeless and since I've been using I've mainly been drinking not eating. Pt w/ severe temporal scooping upon visual observation- unable to complete NFPE at this time, pt w/ covers pulled up to chin. Pt states clothes have been fitting looser than normal. Poor intake at meals- pt reports only consuming OJ and lemonade at b- fast. Lunch tray at bedside. UBW ~115#; CBW 101.4#, wt hx per EMR 01/15 106.9#, 11/18 113#. Severe wt loss 5.5#/5% x 1 month; severe wt loss 11.6#/10% x 3 months. - Nutrition Diagnosis Problem / Etiology / Signs & Symptoms (PES):: Severe malnutrition in the context of social/behavioral/environmental r/t inadequate oral intake aeb </= 50% energy intake compared to estimated energy needs >/= 1 month, severe wt loss of 5.5#/5% x 1 month; 11.6#/10% x 3 months, severe temporal scooping, pt reports clothes fitting looser. Evidence of Malnutrition Exists:: Yes Severe PCM:: Social & Environmental circumstances - Nutrition Intervention Nutrition Prescription:: [id number] calories, 40-50 grams protein - Food / Nutrient Delivery Interventions Nutrition support ordered as / adjusted to:: Continue Regular diet w/ Ensure Enlive, Ensure clear and magic cup w/ meals. Nutrition education provided?: No - MNT Monitoring Further MNT monitoring and evaluation required?: Yes MNT Follow-up in:: 3-5 days
[2020-02-12 12:04] VITALS: BMI 19.1
--- NOTE | 2020-02-12 15:22 | PCM.DC.SUM ---
Discharge Date and Diagnosis Date of Admission: 02/10/20 Date of Discharge: 02/12/20 - Secondary Discharge Diagnosis Chronic Problems: Chronic Problems Anxiety and depression (Chronic) Polysubstance (including opioids) dependence, daily use (Chronic) Nicotine dependence (Chronic) Hypokalemia (Chronic) Elevated liver enzymes (Chronic) Hepatitis C (Chronic) Hepatitis A (Chronic) Hospital Course and Treatment Operations: None Summary of Care Provided: The patient is a 29 year old F history of chronic opioid use with fentanyl and methamphetamine. Patient has history of recurrent admission and signing AMA. Her symptoms got better with buprenorphine based supportive medications. She also has history of chronic hepatitis C and A. Later on the day, she signed AMA. She was advised that this may be a risk for relapse into the substance abuse, and its associated risk of apnea, hypoxia and possible . Patient is able to make decisions and signed AMA [] Objective: Patient was seen and examined in the morning. Her withdrawal symptoms are controlled. She signed AMA later on the day Please see progress note for physical exam findings of the same day. - Physical Exam Vitals/I&O's: Vital Signs Temp Pulse Resp BP Pulse Ox 98.9 F 83 16 114/69 98 02/12/20 08:30 02/12/20 08:30 02/12/20 08:30 02/12/20 08:30 02/12/20 08:30 Oxygen Delivery Method Room Air Weight: 101 lb 6.602 oz Body Mass Index (BMI) 19.1 Intake and Output for Last 24 Hours 02/10/20 02/11/20 02/12/20 23:59 23:59 23:59 Intake Total 845 / 845 850 / 850 Balance 845 / 845 850 / 850 Home Medications: Medications to take at Discharge NK 02/10/20 Primary Care Physician: Care Physician,No Primary [Primary Care Provider] - Medical Necessity - Tobacco Use Smoking Status: Current every day smoker Tobacco Use: Cigarettes Meaningful Use Info Meaningful Use Diagnoses (Choose all that apply): None applicable
--- NOTE | 2020-02-12 15:26 | ADDICTION ---
This business writer met with patient in her room to complete assessments and to process discharge. Patient stated that she wanted to leave AMA. This business writer informed patient's nurse, Tarah.
== END 2020-02-12 14:57 | disposition left against medical advice (07) | DRG 894 ==
LOC: ED 21:38 → MS3 23:18
PROVIDERS: Admitting Provider Family Medicine; Emergency Provider Emergency Medicine; Referring Provider Family Medicine; Visit Provider Internal Medicine
DX: F11.23 Opioid dependence with withdrawal (principal); B15.9 Hepatitis A without hepatic coma; R74.8 Abnormal levels of other serum enzymes; B18.2 Chronic viral hepatitis C; Z59.0 Homelessness; F17.210 Nicotine dependence, cigarettes, uncomplicated
CPT/HCPCS: 36415; 80053; 80307; 80320; 84703; 97803; 99283; G0480

== ENCOUNTER → 2020-09-17 15:45 | Outpatient (CLI) | payer MEDICAID, SELFPAY ==
[2020-09-17 12:47] VITALS: BMI 23.9
== END ==
PROVIDERS: Visit Provider Physician Assistant Surgical
DX: R05 Cough (principal)
CPT/HCPCS: 87635; U0002

== ENCOUNTER 2022-10-20 12:10 | Inpatient (IN) | payer MEDICAID, SELFPAY ==
[2022-10-20 12:17] VITALS: BP 134/100; PULSE 79; RESP 17; TEMP 36.6; O2SAT 100; BMI 21.2
--- NOTE | 2022-10-20 12:26 | RAD_ITS ---
STUDY: X-RAY - RIGHT ELBOW REASON FOR EXAM: Female, 32 years old. Concern for FB TECHNIQUE: 3 view(s) of the elbow. COMPARISON: None. FINDINGS: Normal visualized humerus, radius and ulna. Normal radiocapitellar and ulnotrochlear articulations. The soft tissue structures are unremarkable. RAD/Elbow min 3 Views IMPRESSION: Normal x-ray examination of the elbow. Electronically Signed: Dave Carroll MD at 13:54 EDT ,
--- NOTE | 2022-10-20 12:27 | EKG12_ITS ---
Test Reason : OD Blood Pressure : / mmHG Vent. Rate : 071 BPM Atrial Rate : 071 BPM P-R Int : 130 ms QRS Dur : 072 ms QT Int : 388 ms P-R-T Axes : 055 077 057 degrees QTc Int : 421 ms Normal sinus rhythm Normal ECG Confirmed by YONY ESQUEDA, ELKIN ([id number]), editor & co founder MATY VERDE ([id number]) on 10/23/2022 10:46:54 AM Referred By: Confirmed By:ELKIN BHAKTA MD
--- NOTE | 2022-10-20 12:31 | EDS_ITS ---
HPI History of Present Illness Chief Complaint: Overdose Informant: patient Narrative Narrative: Patient is a 32-year-old female with history of polysubstance abuse, hepatitis and 4 weeks of right leg numbness which she attributes to complications after an overdose presenting via EMS after an overdose. Patient states she used IV fentanyl today. She does not recall exactly what happened but notes that when she woke up the syringe was there but she could not find the needle. She is worried it somehow got stuck in her arm. She does not have any associated arm pain. She received 2 mg of intranasal Narcan prior to arrival. Patient states that she has been using daily at least for couple days but is vague on this history. She states that she was planning on coming here for inpatient detox and is working with 180 to go to some type of sober house on Sunday. Patient notes that about 4 weeks ago she was admitted at [facility] for evaluation of this numbness of her leg. She states she did leave AGAINST MEDICAL ADVICE because they were trying to do too many test. She states there is post to an ultrasound of her heart and further imaging. Patient does note that she is having some right-sided chest discomfort. She states it started yesterday. She states it is more of a dull ache. She has not had this before. She denies any recent fevers. Has had a cough for the past few weeks as well. [facility] Medical History Acute opioid withdrawal Home Medications sofosbuvir 400 mg-velpatasvir 100 mg-voxilaprevir 100 mg tablet (Vosevi) 1 tab PO DAILY 01/11/21 [History Last Taken Unknown] Allergy/AdvReac Type Severity Reaction Status Date / Time No Known Allergies Allergy Verified 10/20/22 12:20 Social History Smoking Status: Current every day smoker tobacco type: cigarettes Tobacco: How many years used: 17 ROS ROS ED Constitutional Constitutional ED: Denies chills or fever(s) Cardiovascular Cardiovascular: Reports chest pain Respiratory/Chest Respiratory/Chest: Reports cough; Denies dyspnea Gastrointestinal Gastrointestinal: Denies abdominal pain, nausea or vomiting Musculoskeletal Musculoskeletal: Reports other Details: concern for FB in right AC fossa ; Denies arthralgias or myalgias Integumentary Denies rash Neurologic Neurologic: Reports paresthesias RLE Psychiatric Psychiatric: Reports other Details: substance abuse Hematologic/Lymphatic Hematologic/Lymphatic: Denies easy bleeding or easy bruising EXAM Physical Exam Const Vital Signs: 10/20/22 12:17 10/20/22 14:29 10/20/22 16:26 Temperature 97.9 F Temperature Source Temporal Pulse Rate 79 76 88 Respiratory Rate 17 15 14 Blood Pressure 134/100 H 97/65 120/71 Blood Pressure Mean 111 75 87 Pulse Ox 100 93 99 Oxygen Delivery Method Room Air Room Air Room Air 10/20/22 16:26 Temperature 98.6 F Temperature Source Temporal Pulse Rate 88 Respiratory Rate 14 Blood Pressure 120/71 Blood Pressure Mean 87 Pulse Ox 99 Oxygen Delivery Method Room Air Positive well nourished and well developed General Appearance ED: well developed and NAD HEENT Reports moist mucous membranes atraumatic Eyes PERRL and EOMs intact bilaterally Neck supple Chest Wall inspection of chest normal and palpation of chest normal Chest Narrative: Patient points to right anterior chest wall area of pain however its not reproducible with direct palpation. No associated crepitus Resp normal respiratory effort and clear to auscultation bilaterally Cardio regular rate, regular rhythm and no murmurs Extremity Extremity Narrative: Normal range of motion. No obvious deformity. General Extremety ED: Negative for tenderness Neuro oriented x3 Neuro Narrative: Subjective paresthesias to the right outer thigh Sensorium / Orientation: alert Motor Exam: Negative for general weakness Psych mental status grossly normal Mood & Affect: anxious Skin Skin Narrative: Track barksdale in the right AC fossa. No obvious foreign body appreciated or palpated MDM MDM MDM Narrative Medical decision making narrative: Patient's evaluated for unintentional overdose of fentanyl. She received Narcan prior to arrival. She is also complaining of some right-sided chest pain since last night and is concerned there might be a needle stuck in her arm as she could not find the needle after her overdose. Patient does not appear acutely intoxicated upon arrival. She overall is acting appropriate but is anxious. She is requesting inpatient detox. Medical screening for inpatient detox as well as cardiac work-up including EKG, high- sensitivity troponin and chest x-ray is obtained. Her work-up is largely normal. She is low risk per Wells criteria and her D-dimer is 0.31. I do not think she is a pulmonary emboli I do not think she requires a CTA at this time. Patient is not hypoxic. Nursing staff spoke to [facility] where she was supposed to do court ordered detox. Apparently she does have a warrant out for her her rest however patient states that she would like to do detox in our hospital. [facility] police is informed of this we did attempt to get a hold of her house officer. Patient is excepted for inpatient detox by Dr. Vuong. History & Record Review Additional record(s) reviewed:: Other ([facility] records via [facility]: Admitted to addiction medicine 10/11 through 10/16 but left AMA. Patient was detoxed however she had a work-up for numbness of her right thigh. She had a negative MRI brain, CTA head and neck and CT of the head. She did have a KAREN ordered but left AMA ) Lab Data Attestation: I reviewed the patient's lab results. Labs: Laboratory Results - last 24 hr 10/20/22 10/20/22 10/20/22 12:40 12:40 12:40 WBC 7.2 RBC 3.92 L Hgb 12.1 Hct 36.8 L MCV 93.9 MCH 30.9 MCHC 32.9 RDW Std Deviation 40.8 RDW Coeff of Chris 11.8 Plt Count 231 MPV 10.3 Immature Gran % (Auto) 0.100 Neut % (Auto) 61.6 Lymph % (Auto) 23.9 [place] % (Auto) 11.9 H Eos % (Auto) 2.1 Baso % (Auto) 0.4 Absolute Neuts (auto) 4.4 Absolute Lymphs (auto) 1.71 Nucleated RBC % 0 D-Dimer Quant (PE/DVT) Sodium 139 Potassium 3.6 Chloride 101 Carbon Dioxide 32.0 Anion Gap 6 BUN 25 H Creatinine 0.94 Estim Creat Clear Calc 64.84 Est GFR (MDRD) Af Amer 88 Est GFR (MDRD) Non-Af 73 BUN/Creatinine Ratio 26.5 H Glucose 99 Calcium 8.8 Total Bilirubin 0.40 AST 36 ALT 31 Alkaline Phosphatase 71 Troponin I High Sens 5 Total Protein 7.0 Albumin 3.5 Globulin 3.5 Albumin/Globulin Ratio 1.0 Urine Opiates Screen Urine Methadone Screen Ur Barbiturates Screen Ur Phencyclidine Scrn Ur Amphetamines Screen MDMA (Ecstasy) Screen U Benzodiazepines Scrn Urine Cocaine Screen U Cannabinoids Screen Ur Drug Screen Comment Ethyl Alcohol < 3.0 10/20/22 10/20/22 12:40 12:50 WBC RBC Hgb Hct MCV MCH MCHC RDW Std Deviation RDW Coeff of Chris Plt Count MPV Immature Gran % (Auto) Neut % (Auto) Lymph % (Auto) [place] % (Auto) Eos % (Auto) Baso % (Auto) Absolute Neuts (auto) Absolute Lymphs (auto) Nucleated RBC % D-Dimer Quant (PE/DVT) 0.31 Sodium Potassium Chloride Carbon Dioxide Anion Gap BUN Creatinine Estim Creat Clear Calc Est GFR (MDRD) Af Amer Est GFR (MDRD) Non-Af BUN/Creatinine Ratio Glucose Calcium Total Bilirubin AST ALT Alkaline Phosphatase Troponin I High Sens Total Protein Albumin Globulin Albumin/Globulin Ratio Urine Opiates Screen POSITIVE H Urine Methadone Screen NEGATIVE Ur Barbiturates Screen NEGATIVE Ur Phencyclidine Scrn NEGATIVE Ur Amphetamines Screen POSITIVE H MDMA (Ecstasy) Screen NEGATIVE U Benzodiazepines Scrn NEGATIVE Urine Cocaine Screen NEGATIVE U Cannabinoids Screen NEGATIVE Ur Drug Screen Comment Ethyl Alcohol Radiography Chest X-Ray - ED: Read by ED Physician and No Acute Disease Diagnostic Testing: Clinical Impression(s) from Imaging Studies Elbow X-Ray 10/20/22 12:26 IMPRESSION: Normal x-ray examination of the elbow. Electronically Signed: Dave Carroll MD at 13:54 EDT Reading Location ID and State: [facility] / [place] , Service support , Chest X-Ray 10/20/22 13:15 IMPRESSION: Normal x-ray examination of the chest. Electronically Signed: aDve Carroll MD at 13:54 EDT , Elbow x-ray interpreted by myself as well as radiology?no acute process or foreign body appreciated Rhythm Strip Rhythm Strip: Sinus Rhythm Rate: 71 Ectopy: None EKG Initial EKG: Attestation: I personally reviewed and interpreted this EKG as follows: Interpretation: Sinus Rhythm Comments: Normal sinus rhythm rate of 71 bpm Normal axis Normal intervals Normal ST segment Discharge Plan Triage Chief Complaint: Overdose ED Provider: Christy Day Dx/Rx/DC Orders Clinical Impression: Polysubstance abuse, Opioid overdose, Atypical chest pain Primary Care Provider: Care Physician,No Primary Disposition Disposition: Acute Care Hospital [facility]
[2022-10-20 12:49] LABS: Absolute Lymphocyte Count 1.71 X10^3/uL (0.83-4.51); Absolute Neutrophil Count 4.4 X10^3/uL (2.0-7.7); Basophil# 0.03 X10^3/uL; Basophil% 0.4 % (0-1); Eosinophil# 0.15 X10^3/uL; Eosinophils% 2.1 % (0-5); Hematocrit 36.8 % (37-47); Hemoglobin 12.1 g/dL (12.0-15.0); Lymphocyte # 1.71 X10^3/ul (0.83-4.51); Lymphocyte % 23.9 % (19-41); Mean Corp Hgb Conc 32.9 g/dL (32-36); Mean Corpuscular Hgb 30.9 pg (27.0-32.0); Mean Corpuscular Volume 93.9 fL (81-99); Mean Platelet Vol. 10.3 fl (6.2-12.0); Monocyte# 0.85 X10^3/uL; Monocyte% 11.9 % (0-10); NRBC Flagged by Analyzer 0 % (0-5); Neutrophil % 61.6 % (47-70); Platelet Count 231 K/mm3 (150-450); RBC Distribution Width CV 11.8 % (11.6-14.6); RBC Distribution Width SD 40.8 fl (35.1-43.9); Red Blood Count 3.92 M/mm3 (4.2-5.4); White Blood Count 7.2 K/mm3 (4.4-11.0)
[2022-10-20 13:10] LABS: AST(SGOT) 36 U/L (15-37); Alanine Aminotransfer ALT/SGPT 31 U/L (13-56); Albumin, Serum 3.5 g/dL (3.2-5.0); Alkaline Phosphatase 71 U/L (45-117); Anion Gap 6 (5-15); BUN 25 mg/dL (7-18); BUN/Creat Ratio 26.5 RATIO (10-20); Calcium,Total 8.8 mg/dL (8.5-10.1); Chloride 101 mmol/L (98-107); Creatinine, Serum 0.94 mg/dL (0.55-1.02); D-Dimer Quantitative (DVT/PE) 0.31 FEU/ug/m (0.27-0.49); EST Glomerular Filtration Rate 73 mL/min (>60); Est Glom Filt Rate - Afr Amer 88 mL/min (>60); Estimated Creatinine Clearance 64.84 ml/min; Globulin 3.5 g/dL (2.2-4.2); Glucose 99 mg/dL (74-106); Potassium 3.6 mmol/L (3.5-5.1); Sodium Level 139 mmol/L (136-145); Troponin-I HS 5 pg/mL (3.0-54.0)
--- NOTE | 2022-10-20 13:15 | RAD_ITS ---
STUDY: X-RAY CHEST REASON FOR EXAM: Female, 32 years old. Fentanyl overdose. TECHNIQUE: PA and lateral views of the chest. COMPARISON: None. FINDINGS: EKG electrodes are seen. The lungs are clear and expanded. There is no demonstrated pleural abnormality. Normal size heart. Normal mediastinum and raphael. Normal visualized pulmonary arteries. Normal visualized aortic arch and descending thoracic aorta. Normal visualized thoracic spine. Normal visualized ribs, clavicles, and shoulders. There is no demonstrated abnormality of the visualized soft tissue structures of the upper abdomen. RAD/Chest PA and Lateral IMPRESSION: Normal x-ray examination of the chest. Electronically Signed: Dave Carroll MD at 13:54 EDT ,
[2022-10-20 13:21] LABS: Alcohol, Blood (Medical)-Serum < 3.0 mg/dL
[2022-10-20 13:21] LABS: Amphetamine Urine VISTA POSITIVE (<1000 ng/mL); Barbiturate Urine VISTA NEGATIVE (< 200 ng/mL); Benzodiazepine Urine VISTA NEGATIVE (< 200 ng/mL); Cocaine Urine VISTA NEGATIVE (< 300 ng/mL); Ecstacy Urine VISTA NEGATIVE (< 500 ng/mL); Methadone Urine VISTA NEGATIVE (< 300 ng/mL); PCP Urine VISTA NEGATIVE (< 25 ng/mL); THC Urine VISTA NEGATIVE (< 50 ng/mL); Vista UDS pH Range 7
[2022-10-20 14:29] VITALS: BP 97/65; PULSE 76; RESP 15; O2SAT 93
--- NOTE | 2022-10-20 16:03 | HP.PCM.HOS_ITS ---
HPI - General General Date of Admission: 10/20/22 Date of Service: 10/20/22 HPI Narrative ABHISHEK JENKINS, is a 32 F with a PMH as outlined who presents via the ED on 10/20/2022 with a complaint of fentanykl overodose. She has a history of polysubstance abuse, hepatitis and a one month history of RLE numbness. Her last use was just before arrival and says she took too much and had an overdose. She received narcan. She says when she came around, her syringe was in her arm, but the needle wasnt there, so she was worried it was stuck in her arm. She was at [facility] ~ 4 weeks prior to admission for an overdose. She complained of right lateral thigh tingliing and numbness, and says they did an MRI there which didnt show any evidence of pathology. THey wanted to do a KAREN there but she refused because she didnt want to do more testing so she signed out AMA. She also complained of some mild right-sided chest discomfort which started the day before admission and is new. She has also had a cough for the past few days but denies any fever or chills. She denies any tremors or shakes. Review of systems otherwise negative. Vitals in the ED were BP of 97/65, pulse rate of 76, respiratory to 15 and she was saturating at 93% on room air. CBC showed hemoglobin of 12.1 with WBC of 7.2 and platelets of 231. Chemistry was unremarkable. Urine toxicology was positive for amphetamines and opiates and serum alcohol level was less than 3. Elbow x-ray was normal and did not show any foreign body in situ. She has been admitted to be managed for acute opioid withdrawal [facility] Medical History Acute opioid withdrawal Home Medications sofosbuvir 400 mg-velpatasvir 100 mg-voxilaprevir 100 mg tablet (Vosevi) 1 tab PO DAILY 01/11/21 [History Last Taken Unknown] Allergy/AdvReac Type Severity Reaction Status Date / Time No Known Allergies Allergy Verified 10/20/22 12:20 Social History Smoking Status: Current every day smoker tobacco type: cigarettes Tobacco: How many years used: 17 ROS Constitutional Constitutional: Denies anorexia, change in weight, chills, fatigue, fever(s), malaise or weakness Eyes Eyes: Reports change in eye color; Denies change in vision ENT HEENT: Denies dysphagia, headache(s) or sore throat Cardiovascular Cardiovascular: Denies chest pain, dyspnea on exertion, edema, lightheadedness, orthopnea, palpitations, rapid heart rate or syncope Respiratory/Chest Respiratory/Chest: Denies cough, dyspnea, productive cough, shortness of breath at rest or shortness of breath with exertion Gastrointestinal Gastrointestinal: Denies abdominal pain, nausea or vomiting Genitourinary Genitourinary: Denies dysuria Musculoskeletal Musculoskeletal: Denies arthralgias or joint pain Neurologic Neurologic: Reports numbness; Denies confusion, dizziness, focal weakness, headache(s), seizures or syncope Psychiatric Psychiatric: Denies anxiety Endocrine Endocrinology: Denies change in body appearance Hematologic/Lymphatic Hematologic/Lymphatic: Denies anemia Vital Signs Vital Signs Vital Signs: 10/20/22 12:17 10/20/22 14:29 Temperature 97.9 F Temperature Source Temporal Pulse Rate 79 76 Respiratory Rate 17 15 Blood Pressure 134/100 H 97/65 Blood Pressure Mean 111 75 Pulse Ox 100 93 Oxygen Delivery Method Room Air Room Air Weight Weight: 112 lb 10.499 oz Body Mass Index (BMI) 21.2 Physical Exam Const alert, oriented x3 and no apparent distress General Appearance: cooperative HEENT normocephalic, head/scalp atraumatic, hearing grossly normal bilaterally and moist oral mucous membranes Mouth: oral and palatal mucosa normal Eyes PERRL and EOMs intact bilaterally Neck no lymphadenopathy and supple Resp normal respiratory effort, no retractions, no use of accessory muscles and clear to auscultation bilaterally Cardio regular rate, regular rhythm, S1 normal heart sound, S2 normal heart sound and no murmurs GI normal to inspection, nondistended, normoactive bowel sounds, soft to palpation and non-tender Extremity normal to inspection, full ROM and no clubbing, cyanosis or edema Neuro oriented x3, CN's II-XII intact bilaterally and moves all extremities Sensorium / Orientation: awake and alert Motor Exam: strength 5/5 throughout Psych affect normal Results Lab / Micro Data Result Diagrams: 10/20/22 12:40 10/20/22 12:40 Labs: Laboratory Results - last 24 hr 10/20/22 12:40: WBC 7.2, RBC 3.92 L, Hgb 12.1, Hct 36.8 L, MCV 93.9, MCH 30.9, MCHC 32.9, RDW Std Deviation 40.8, RDW Coeff of Chris 11.8, Plt Count 231, MPV 10.3, Immature Gran % (Auto) 0.100, Neut % (Auto) 61.6, Lymph % (Auto) 23.9, [place] % (Auto) 11.9 H, Eos % (Auto) 2.1, Baso % (Auto) 0.4, Absolute Neuts (auto) 4.4, Absolute Lymphs (auto) 1.71, Nucleated RBC % 0 10/20/22 12:40: Sodium 139, Potassium 3.6, Chloride 101, Carbon Dioxide 32.0, Anion Gap 6, BUN 25 H, Creatinine 0.94, Estim Creat Clear Calc 64.84, Est GFR (MDRD) Af Amer 88, Est GFR (MDRD) Non-Af 73, BUN/Creatinine Ratio 26.5 H, Glucose 99, Calcium 8.8, Total Bilirubin 0.40, AST 36, ALT 31, Alkaline Phosph atase 71, Troponin I High Sens 5, Total Protein 7.0, Albumin 3.5, Globulin 3.5, Albumin/Globulin Ratio 1.0 10/20/22 12:40: Ethyl Alcohol < 3.0 10/20/22 12:40: D-Dimer Quant (PE/DVT) 0.31 10/20/22 12:50: Urine Opiates Screen POSITIVE H, Urine Methadone Screen NEGATIVE, Ur Barbiturates Screen NEGATIVE, Ur Phencyclidine Scrn NEGATIVE, Ur Amphetamines Screen POSITIVE H, MDMA (Ecstasy) Screen NEGATIVE, U Benzodiazepines Scrn NEGATIVE, Urine Cocaine Screen NEGATIVE, U Cannabinoids Screen NEGATIVE, Ur Drug Screen Comment Radiology Impression Elbow X-Ray 10/20/22 12:26 IMPRESSION: Normal x-ray examination of the elbow. Electronically Signed: Dave Carroll MD at 13:54 EDT , Chest X-Ray 10/20/22 13:15 IMPRESSION: Normal x-ray examination of the chest. Electronically Signed: Dave Carroll MD at 13:54 EDT , Assessment & Plan Assessment/Plan (1) Opioid withdrawal: PLAN: Plan #Acute opioid withdrawal * [facility] Did have an overdose today and had to be resuscitated with Narcan. * Says she thought the needle may be stuck in her forearm but x-ray of the antecubital fossa did not show any foreign body. * Patient has apparently been mandated to undergo opiate detox by the courts as well * Urine tox positive for opioids and amphetamines * Statin opioid withdrawal protocol with buprenorphine * Adjunctive meds for symptomatic relief. * patient is apparently here to undergo a court ordered detox, as she has a warrant out for her arrest from [facility]. She had stated she wanted to detox in the hospital. ED informed [facility] Police * #History of hepatitis C: on sofosbusvir, velpatasvir and voxilaprevir #RLE numbness: States she had work-up done for this at [facility] and had an MRI of the brain as well as CT of the brain and CTA of the head and neck which were negative. to follow up with PCP on outpatient basis #Chest pain: * Patient complains of right-sided chest pain. * Chest pain has been reproducible with palpation. * EKG in the ED showed no acute ST changes. * We will cycle troponins. * D-dimer was only 0.31 so she is low risk for PE. * will monitor DVT prophylaxis; low risk, encourage to ambulate Charges/Coding Visit Charges Inpatient E&M: 61108 Init Hosp L3
[2022-10-20 16:26] VITALS: BP 120/71; PULSE 88; RESP 14; TEMP 37; O2SAT 99
--- NOTE | 2022-10-20 16:40 | ED.RN ---
PER JASMYN APARICIO LEGAL MANAGER, PT RISK MANAGEMENT INTERNSHIP CAN LEGALLY/MUST BE INFORMED OF PT INFORMATION AND DISCHARGE.
--- NOTE | 2022-10-20 17:14 | ED.RN ---
MARIA A CHEUNG, CHIEF OF [facility] CALLING INTO ED WITH CONCERNS OF PT HAVING A WARRANT FOR COURT ORDERED DETOX. HE REQUESTS THAT NURSING STAFF INFORM HIM OF WHEN PT IS DISCHARGED. PER MARIA A, IF THE PATIENT IS UNDER ARREST HE COULD PRESENT TO THE ED AND REMOVE HER FROM THE DEPARTMENT BECAUSE SHE IS UNDER ARREST. THIS RN INFORMS HIM THAT THAT IS NOT THE CASE AND THE PATIENT HAS NOT BEEN DISCHARGED, RATHER PT TO BE ADMITTED TO THE HOSPITAL. PER MARIA A, REQUESTS THAT THE NURSES HAVE THE PATIENT SIGN A RELEASE OF INFORMATION FROM THE HOSPITAL SAYING THAT THE PATIENT WOULD GIVE STAFF PERMISSION TO SHARE HER MEDICAL INFORMATION. THIS RN INFORMS MARIA A THAT WE DO NO HAVE A FORM LIKE THAT, AND THE CONSENT TO SHARE INFORMATION CAN CHANGE BASED UPON THE PATIENT PERMISSION. HEAD OF HOUSEKEEPING NOTIFIED OF JOEL INSISTENCE THAT THE HOSPITAL BE INFORM HIM OF PT STATUS. JASMYN APARICIO IN THE DEPARTMENT TO TALK TO MARIA A VIA PHONE. PER JASMYN, IN CASES OF PROBATION, PT INFORMATION CAN LEGALLY BE SHARED WITH THE MEAT GRADING MACHINE OPERATOR. MARIA A CARRERAWiliam PHONE NUMBER IS [phone]. MED SURG CHARGE NURSE SANDRA INFORMED OF SITUATION AND REPORTS THAT INFORMATION WILL BE PASSED ON TO PRIMARY RN AND WASHER ENGINEER HELPER CHARGE. PT AWAITING BED ON MED SURG.
[2022-10-20 18:25] LABS: Internal QC Validated? YES +Cl - CLEAR BKGD; Pregnancy, Urine Negative Negative
[2022-10-20 18:56] VITALS: BMI 19.4
[2022-10-20 18:59] VITALS: BP 104/64; PULSE 65; RESP 16; TEMP 36.8; O2SAT 99
[2022-10-20 20:14] LABS: Troponin-I HS 7 pg/mL (3.0-54.0)
[2022-10-20] MEDS: Buprenorphine HCl 2 MG TAB.SUBL SL (20:30)
[2022-10-20] MEDS: Gabapentin 300 MG Capsule PO (20:30)
[2022-10-20] MEDS: Acetaminophen 325 MG Tablet 650 MG PO (20:30)
[2022-10-20] MEDS: traZODone 100 MG Tablet PO (20:31)
[2022-10-20] MEDS: Mag Hydrox/Al Hydrox/Simeth 30 ML UDC PO (20:31)
[2022-10-20] MEDS: Famotidine 20 MG Tablet PO (20:31)
[2022-10-20 20:35] VITALS: BP 102/57; PULSE 72; RESP 16; TEMP 37.1; O2SAT 95
[2022-10-20 22:28] LABS: Troponin-I HS 6 pg/mL (3.0-54.0)
[2022-10-21 00:28] VITALS: BP 106/58; PULSE 75; RESP 16; TEMP 36.6; O2SAT 96
[2022-10-21 02:42] LABS: Troponin-I HS 5 pg/mL (3.0-54.0)
[2022-10-21] MEDS: Buprenorphine HCl 2 MG TAB.SUBL SL ×3 (04:23→20:27)
[2022-10-21 04:26] VITALS: BP 102/52; PULSE 56; RESP 16; TEMP 36.7; O2SAT 97
--- NOTE | 2022-10-21 08:13 | PCM.PN.HOSP ---
Subjective Subjective Resting comfortably with a Cina score of 0 Objective Data Objective Data Vital Signs: Vital Signs Temp Pulse Resp BP Pulse Ox O2 Del Method 98.1 F 56 L 16 102/52 L 97 Room Air 10/21/22 04:10/21/22 04:10/21/22 04:26 10/21/22 04:26 10/21/22 04:10/21/22 04:26 Oxygen Delivery Method Room Air Weight: 103 lb Body Mass Index (BMI) 19.4 Lab / Micro Data Result Diagrams: 10/20/22 12:40 10/20/22 12:40 Labs: Laboratory Results - last 24 hr 10/20/22 12:40: WBC 7.2, RBC 3.92 L, Hgb 12.1, Hct 36.8 L, MCV 93.9, MCH 30.9, MCHC 32.9, RDW Std Deviation 40.8, RDW Coeff of Chris 11.8, Plt Count 231, MPV 10.3, Immature Gran % (Auto) 0.100, Neut % (Auto) 61.6, Lymph % (Auto) 23.9, [place] % (Auto) 11.9 H, Eos % (Auto) 2.1, Baso % (Auto) 0.4, Absolute Neuts (auto) 4.4, Absolute Lymphs (auto) 1.71, Nucleated RBC % 0 10/20/22 12:40: Sodium 139, Potassium 3.6, Chloride 101, Carbon Dioxide 32.0, Anion Gap 6, BUN 25 H, Creatinine 0.94, Estim Creat Clear Calc 64.84, Est GFR (MDRD) Af Amer 88, Est GFR (MDRD) Non-Af 73, BUN/Creatinine Ratio 26.5 H, Glucose 99, Calcium 8.8, Total Bilirubin 0.40, AST 36, ALT 31, Alkaline Phosphatase 71, Troponin I High Sens 5, Total Protein 7.0, Albumin 3.5, Globulin 3.5, Albumin/Globulin Ratio 1.0 10/20/22 12:40: Ethyl Alcohol < 3.0 10/20/22 12:40: D-Dimer Quant (PE/DVT) 0.31 10/20/22 12:50: Urine Opiates Screen POSITIVE H, Urine Methadone Screen NEGATIVE, Ur Barbiturates Screen NEGATIVE, Ur Phencyclidine Scrn NEGATIVE, Ur Amphetamines Screen POSITIVE H, MDMA (Ecstasy) Screen NEGATIVE, U Benzodiazepines Scrn NEGATIVE, Urine Cocaine Screen NEGATIVE, U Cannabinoids Screen NEGATIVE, Ur Drug Screen Comment 10/20/22 12:50: Urine Test Negative 10/20/22 19:40: Troponin I High Sens 7 10/20/22 21:35: Troponin I High Sens 6 10/21/22 02:15: Troponin I High Sens 5 Radiography Diagnostic Testing: Radiology Impression Elbow X-Ray 10/20/22 12:26 IMPRESSION: Normal x-ray examination of the elbow. Electronically Signed: Dave Carroll MD at 13:54 EDT , Chest X-Ray 10/20/22 13:15 IMPRESSION: Normal x-ray examination of the chest. Electronically Signed: Dave Carroll MD at 13:54 EDT , Rhythm Strip Rhythm Strip: Sinus Rhythm Rate: 71 Ectopy: None Physical Exam Narrative General: Alert, Oriented x3, Cooperative, No apparent distress HEENT: Atraumatic, PERRLA, EOMI, Normocephalic Oral: Moist Mucosa Neck: Supple, No JVD Lungs: Clear to auscultation, Normal air movement, No rhonchi, No wheeze, No rales Cardiovascular: Regular rate, Regular Rhythm, Normal S1, Normal S2, No murmurs Abdomen: Soft, Non Tender, Non-Distended, No Hepato-splenomegaly Extremities: No edema, Capillary Refill Less than 3 Seconds Skin: No rashes, No breakdown Musculoskeletal: No Tenderness to Palpation of Joints or Extremities Neurological: Cranial nerves II-XII grossly intact, Motor Exam 5/5 strength throughout, Sensory exam intact to light touch and pain Psych/Mental Status: Normal Affect, Appropriate Assessment & Plan Assessment/Plan (1) Opioid withdrawal: PLAN: Plan 1. Acute opiate withdrawal/history of hepatitis C/right lower extremity numbness/reproducible chest pain on palpation ? Troponins are normal will not further pursue chest pain ? Continue with the opiate withdrawal protocol, this does appear to be court ordered ? She is on antiviral medication for her hepatitis C ? We will have her follow-up with 180 ? She did have a recent work-up done at [facility] for her right lower extremity numbness including an MRI and a CTA of the head and neck all of which were normal. They did want a KAREN but she refused and left AMA DVT: Ambulation Charges/Coding Visit Charges Inpatient E&M: 16589 Subs Hosp L2
[2022-10-21 09:19] VITALS: BP 99/64; PULSE 70; RESP 16; TEMP 36.8; O2SAT 100
[2022-10-21] MEDS: Gabapentin 300 MG Capsule PO (09:29)
[2022-10-21] MEDS: hydrOXYzine PAM 25 MG Capsule 50 MG PO (09:29)
[2022-10-21] MEDS: Famotidine 20 MG Tablet PO ×2 (09:32→20:27)
[2022-10-21 12:39] VITALS: BP 101/62; PULSE 69; RESP 16; TEMP 36.7; O2SAT 99
--- NOTE | 2022-10-21 15:13 | ADDICTION ---
Pt was met w/for addiction medicine discharge planning, ASAM, DUDIT, AUDIT, Mt Status, and to provide resources and support. Pt appears to meet ASAM criteria for 4.0 LoC. Pt admits she is unable to maintain recovery outside of a supervised setting and pt admits she was in detox in [place] just last week. It is recomended that pt follow up w/residential 3.5LoC as a direct admit, d/t pt's severity of relapse risk factors. Pt is scheduled to admit directly to [facility] w[facility] staff to transport. Pt's discharge date is still TBD but pt has already been screened and scheduled to admit to [facility]; H&P still needs to be sent. Contact Jeannie Bonner at [facility] to arrange transportation once pt's d/c date is determined.
[2022-10-21 16:28] VITALS: BP 94/50; PULSE 69; RESP 16; TEMP 36.8; O2SAT 99
[2022-10-21 20:20] VITALS: BP 95/45; PULSE 80; RESP 14; TEMP 37.2; O2SAT 99
[2022-10-21] MEDS: Methocarbamol 750 MG Tablet 1500 MG PO (20:27)
[2022-10-22 04:36] VITALS: BP 97/50; PULSE 74; RESP 16; TEMP 36.8; O2SAT 99
[2022-10-22] MEDS: Buprenorphine HCl 2 MG TAB.SUBL SL ×3 (04:38→20:13)
[2022-10-22] MEDS: Methocarbamol 750 MG Tablet 1500 MG PO (04:38)
[2022-10-22] MEDS: Famotidine 20 MG Tablet PO ×2 (10:01→21:06)
[2022-10-22] MEDS: Acetaminophen 325 MG Tablet 650 MG PO (10:05)
[2022-10-22] MEDS: Gabapentin 300 MG Capsule PO (10:06)
[2022-10-22 10:08] VITALS: BP 97/54; PULSE 64; RESP 16; TEMP 36.6; O2SAT 98
--- NOTE | 2022-10-22 10:17 | PN.HOSP_ITS ---
Reason for Visit Reason for Visit: Diagnoses Opioid use, unspecified with withdrawal (10/20/22) Subjective Subjective Patient was seen and examined today, she did not appear nervous or anxious at the time of my examination, she had no specific complaints. She tells this examiner that she plans on doing an inpatient detox program when she is dis charged in the hospital here. Notes from addiction social sciences lecturer yesterday state that she will go to [facility] when she is discharged from the hospital here for inpatient detox services. I assume this will either be tomorrow or Sunday. Objective Data Objective Data Vital Signs: Vital Signs Temp Pulse Resp BP Pulse Ox O2 Del Method 98 F 64 16 97/54 L 98 Room Air 10/22/22 10:08 10/22/22 10:08 10/22/22 10:08 10/22/22 10:08 10/22/22 10:08 10/22/22 10:08 Oxygen Delivery Method Room Air Weight: 46.72 kg Body Mass Index (BMI) 19.4 Intake & Output: Intake and Output for Last 24 Hours 10/20/22 10/21/22 10/22/22 23:59 23:59 23:59 Intake Total 600 / 600 Balance 600 / 600 Lab / Micro Data Result Diagrams: 10/20/22 12:40 10/20/22 12:40 Rhythm Strip Rhythm Strip: Sinus Rhythm Rate: 71 Ectopy: None Physical Exam Const alert, oriented x3, no apparent distress and healthy appearing General Appearance: cooperative, well kempt and well developed Orientation / Consciousness: awake, oriented to person, oriented to place and oriented to time HEENT normocephalic, head/scalp atraumatic and moist oral mucous membranes Eyes PERRL, EOMs intact bilaterally and conjunctivae normal Neck supple, no JVD, thyroid normal and no carotid bruits General: trachea midline Resp normal respiratory effort, no retractions, no use of accessory muscles and clear to auscultation bilaterally Auscultation: Negative for rales, rhonchi or wheezes Cardio regular rate, regular rhythm, S1 normal heart sound, S2 normal heart sound, no murmurs, no rub and no gallops GI normal to inspection, nondistended, normoactive bowel sounds, soft to palpation, non-tender and non-distended Extremity no clubbing, cyanosis or edema Skin no rashes or lesions noted General Skin Exam: no breakdown Neuro oriented x3, CN's II-XII intact bilaterally, no focal motor deficits and no sensory deficits noted Sensorium / Orientation: awake, alert, oriented to person, oriented to place and oriented to time Speech: speech normal Psych affect normal Assessment & Plan Assessment/Plan (1) Opioid withdrawal: PLAN: Plan 1. Acute opiate withdrawal-again patient will go into an inpatient detox program when she is discharged from the hospital here #2 chronic opioid addiction-complicates care, medical course, recovery, and prognosis #3 History of hepatitis C-patient was on a medication for hepatitis C (Vosevi) in the past, she tells nursing she has completed the course. Total clinical time spent by myself addressing the patient's medical issues, reviewing all of her data, and collaborating with patient's care team: 25 minutes Charges/Coding Visit Charges Inpatient E&M: 62253 Subs Hosp L1
[2022-10-22 15:16] VITALS: BP 97/58; PULSE 82; RESP 16; TEMP 36.7; O2SAT 98
[2022-10-22 20:11] VITALS: BP 111/77; PULSE 69; RESP 14; TEMP 37.3; O2SAT 100
[2022-10-23 04:00] VITALS: BP 102/63; PULSE 61; RESP 14; TEMP 37.2; O2SAT 99
[2022-10-23 09:01] VITALS: BP 118/77; PULSE 59; RESP 16; TEMP 36.6; O2SAT 100
[2022-10-23] MEDS: Famotidine 20 MG Tablet PO (09:03)
[2022-10-23] MEDS: Buprenorphine HCl 2 MG TAB.SUBL SL (09:03)
--- NOTE | 2022-10-23 10:21 | DCINST_ITS ---
Discharge Instructions Diet Discharge Diet: No restrictions Activity Discharge Activity: Return to Normal Activity Weight Bearing Status: Full weight bearing Follow Up Care Test Results: Test results from this visit will be discussed in further detail at your follow- up appointment, if applicable. Discharge Plan Admission Admit Date/Time: 10/20/22 17:29 Primary Reason for Your Visit: opiate withdrawal Attending Provider: Madhu Christian Primary Care Provider: Care Physician,No Primary Consulting Providers: Ritika Vuong ; John Sanford Discharge Orders/Prescriptions Prescriptions: Discontinued Vosevi 400-100-100 mg tablet 1 tab PO DAILY Rx Instructions: must administer with a meal/food Referrals / Follow Up: Care Physician,No Primary [Primary Care Provider] - Disposition Disposition (needs filled in before D/C Order can be placed): Home, Self Care
--- NOTE | 2022-10-23 10:23 | DS.PCM_ITS ---
Providers Date of Admission: 10/20/22 Date of Discharge: 10/23/22 Primary Care Physician: No Primary Care Phys Reason For Visit: ACUTE OPIOID WITHDRAWAL Diagnosis Discharge Diagnosis (1) Opioid withdrawal: Status: Acute Code(s): F11.93 - Opioid use, unspecified with withdrawal Plan 1. Acute opiate withdrawal-again patient will go into an inpatient detox program when she is discharged from the hospital here #2 chronic opioid addiction-complicates care, medical course, recovery, and prognosis #3 History of hepatitis C-patient was on a medication for hepatitis C (Vosevi) in the past, she tells nursing she has completed the course. Total clinical time spent by myself addressing the patient's medical issues, reviewing all of her data, and collaborating with patient's care team: 25 minutes Hospital Course Operations None Procedures None Summary of Care Provided Minutes Spent on Discharge: 30 Hospital Course: This 32-year-old white female was seen in the emergency room at [facility] requesting services for opiate detox, labs obtained in the emergency room included tox screen which was positive for opiates and amphetamines. Patient CBC was unremarkable, chemistry panel was unremarkable. Patient was admitted to [place] [address], orders were entered using the opiate detox order set, patient had no major issues during her hospitalization, she was seen by addiction social services analyst and agreed to be placed in an inpatient detox facility upon discharge from the hospital. On 10/23/2022, patient was seen and examined: On examination she appeared in good health and spirits, she does not appear to be in any distress. Vital signs as documented. Skin warm and dry and without overt rashes. Neck without JVD, thyroid appears normal, trachea is midline, neck is supple. Lungs clear, normal air movement was noted. Heart exam notable for regular rhythm, normal sounds and absence of murmurs, rubs or gallops. Abdomen unremarkable and without evidence of organomegaly, masses, or abdominal aortic enlargement, bowel sounds are present in all 4 quadrants, no abdominal tenderness was noted. Extremities nonedematous, no cyanosis was noted, no clubbing was noted. Neuro: Cranial nerves II through XII are grossly intact, no focal motor deficits were noted, sensation to light touch and pinprick is intact, motor exam 5/5 throughout. Psych: Patient is alert and oriented x3, she does not appear anxious or depres sed, she does not appear agitated. On 10/23/2022, patient was seen and examined and felt to be stable for discharge to an outpatient detox facility. Weight / BMI Weight Weight: 46.72 kg Body Mass Index (BMI) 19.4 ABG / Lab / Microbiology Data Result Diagrams: 10/20/22 12:40 10/20/22 12:40 D/C Instructions Discharge Diet: No restrictions Weight Bearing Status: Full weight bearing Meaningful Use Info Meaningful Use Diagnoses (Choose all that apply): None applicable Discharge Plan Admission Admit Date/Time: 10/20/22 17:29 Primary Reason for Your Visit: opiate withdrawal Attending Provider: Madhu Christian Primary Care Provider: Care Physician,No Primary Consulting Providers: Ritika Vuong ; John Sanford Discharge Orders/Prescriptions Prescriptions: Discontinued Vosevi 400-100-100 mg tablet 1 tab PO DAILY Rx Instructions: must administer with a meal/food Referrals / Follow Up: Care Physician,No Primary [Primary Care Provider] - Disposition Disposition (needs filled in before D/C Order can be placed): Home, Self Care Charges/Coding Visit Charges Inpatient E&M: 85529 Disch Hosp
--- NOTE | 2022-10-23 10:48 | ADDICTION ---
Addiction therapist met with pt to discuss dc planning. She will admit to residential treatment at [facility] today. They will provide transportation today at noon.
== END 2022-10-23 12:05 | disposition home or self-care (01) | DRG 773 ==
LOC: ED 13:14 → MS3 17:07
PROVIDERS: Admitting Provider Student in an Organized Health Care Education/Training Program; Emergency Provider Emergency Medicine; Visit Provider Internal Medicine
DX: F11.23 Opioid dependence with withdrawal (principal); F17.210 Nicotine dependence, cigarettes, uncomplicated; R07.89 Other chest pain; R20.0 Anesthesia of skin; Z65.3 Problems related to other legal circumstances; Z86.19 Personal history of other infectious and parasitic diseases
CPT/HCPCS: 36415; 71046; 73080; 80053; 80307; 81025; 82077; 84484; 85025; 85379; 93005; 99285; 99406; A4216